=== PATIENT | male | born 1940 | race Caucasian/White ===

== ENCOUNTER → 2018-09-23 20:59 | Outpatient (CLI) | payer SELFPAY ==
[2018-09-23 15:18] VITALS: BMI 28.1
[2018-09-23 21:27] LABS: Thyroid Stim Hormone (TSH) 1.39 uIU/mL (0.358-3.74)
== END ==
PROVIDERS: Visit Provider Nurse Practitioner
DX: E03.9 Hypothyroidism, unspecified (principal)
CPT/HCPCS: 84443

== ENCOUNTER → 2018-09-24 08:53 | Outpatient (CLI) | payer MEDICARE, BC, SELFPAY ==
[2018-09-23 15:18] VITALS: BMI 28.1
== END ==
PROVIDERS: Family Provider Nurse Practitioner; PCP Nurse Practitioner; Referring Provider Nurse Practitioner; Visit Provider Nurse Practitioner
DX: E03.9 Hypothyroidism, unspecified (principal)

== ENCOUNTER → 2019-06-27 18:08 | Outpatient (CLI) | payer MEDICARE, BC, SELFPAY ==
[2019-06-27 11:30] VITALS: BMI 27.8
[2019-06-27 18:20] LABS: Absolute Lymphocyte Count 1.69 X10^3/uL (0.83-4.51); Absolute Neutrophil Count 6.3 X10^3/uL (2.0-7.7); Basophil# 0.05 X10^3/uL; Basophil% 0.5 % (0-1); Eosinophil# 0.26 X10^3/uL; Eosinophils% 2.8 % (0-5); Hematocrit 43.5 % (40-54); Hemoglobin 13.1 g/dL (13.0-16.5); Lymphocyte # 1.69 X10^3/ul (4.0); Lymphocyte % 18.2 % (19-41); Mean Corp Hgb Conc 30.1 g/dL (32-36); Mean Corpuscular Hgb 30.3 pg (27.0-32.0); Mean Corpuscular Volume 100.7 fL (80-94); Monocyte# 0.99 X10^3/uL; Monocyte% 10.7 % (0-10); NRBC Flagged by Analyzer 0 % (0-5); Neutrophil # 6.25 X10^3/uL (2.7-7.7); Neutrophil % 67.5 % (47-70); Platelet Count 297 K/mm3 (150-450); RBC Distribution Width CV 14.5 % (11.6-14.6); RBC Distribution Width SD 54.4 fl (35.1-43.9); Red Blood Count 4.32 M/mm3 (4.6-6.2); White Blood Count 9.3 K/mm3 (4.4-11.0)
[2019-06-27 18:37] LABS: ALB/GLOB Ratio 0.9 RATIO (0.9-2.4); AST(SGOT) 15 U/L (15-37); Alanine Aminotransfer ALT/SGPT 16 U/L (16-61); Albumin, Serum 3.6 g/dL (3.2-5.0); Alkaline Phosphatase 66 U/L (45-117); Anion Gap 2 (5-15); BUN 17 mg/dL (7-18); BUN/Creat Ratio 10.6 RATIO (10-20); Calcium,Total 9.1 mg/dL (8.5-10.1); Chloride 109 mmol/L (98-107); Cholesterol 201 mg/dL (200); Creatinine, Serum 1.61 mg/dL (0.70-1.30); EST Glomerular Filtration Rate 44 mL/min (>60); Est Glom Filt Rate - Afr Amer 53 mL/min (>60); Globulin 4.1 g/dL (2.2-4.2); Glucose 82 mg/dL (74-106); High Density Lipoprotein 51 mg/dL; Potassium 5.7 mmol/L (3.5-5.1); Protein, Total 7.7 g/dL (6.4-8.2); Sodium Level 141 mmol/L (136-145); Thyroid Stim Hormone (TSH) 1.18 uIU/mL (0.358-3.74); Triglycerides 155 mg/dL; Very Low Density Lipoprotein 31 mg/dL (5-40)
== END ==
PROVIDERS: Family Provider Nurse Practitioner; PCP Nurse Practitioner; Referring Provider Nurse Practitioner; Visit Provider Nurse Practitioner
DX: E03.9 Hypothyroidism, unspecified (principal); I10 Essential (primary) hypertension; E78.5 Hyperlipidemia, unspecified
CPT/HCPCS: 80053; 80061; 84443; 85025

== ENCOUNTER → 2020-06-28 21:02 | Outpatient (CLI) | payer MEDICARE, BC, SELFPAY ==
[2020-06-28 15:35] VITALS: BMI 27.8
[2020-06-28 21:14] LABS: Absolute Lymphocyte Count 1.77 X10^3/uL (0.83-4.51); Absolute Neutrophil Count 5.2 X10^3/uL (2.0-7.7); Basophil# 0.06 X10^3/uL; Basophil% 0.7 % (0-1); Eosinophil# 0.24 X10^3/uL; Hematocrit 35.1 % (40-54); Hemoglobin 10.4 g/dL (13.0-16.5); Lymphocyte # 1.77 X10^3/ul (4.0); Lymphocyte % 21.8 % (19-41); Mean Corp Hgb Conc 29.6 g/dL (32-36); Mean Corpuscular Hgb 27.4 pg (27.0-32.0); Mean Corpuscular Volume 92.4 fL (80-94); Mean Platelet Vol. 11.9 fl (6.2-12.0); Monocyte# 0.84 X10^3/uL; Monocyte% 10.4 % (0-10); NRBC Flagged by Analyzer 0 % (0-5); Neutrophil # 5.17 X10^3/uL (2.7-7.7); Neutrophil % 63.7 % (47-70); Platelet Count 358 K/mm3 (150-450); RBC Distribution Width CV 17.4 % (11.6-14.6); RBC Distribution Width SD 59.3 fl (35.1-43.9); White Blood Count 8.1 K/mm3 (4.4-11.0)
[2020-06-28 21:40] LABS: ALB/GLOB Ratio 0.9 RATIO (0.9-2.4); AST(SGOT) 14 U/L (15-37); Alanine Aminotransfer ALT/SGPT 14 U/L (16-61); Albumin, Serum 3.5 g/dL (3.2-5.0); Alkaline Phosphatase 59 U/L (45-117); Anion Gap 3 (5-15); BUN 19 mg/dL (7-18); BUN/Creat Ratio 10.9 RATIO (10-20); Calcium,Total 8.7 mg/dL (8.5-10.1); Chloride 107 mmol/L (98-107); Cholesterol 148 mg/dL (200); Creatinine, Serum 1.75 mg/dL (0.70-1.30); EST Glomerular Filtration Rate 40 mL/min (>60); Est Glom Filt Rate - Afr Amer 48 mL/min (>60); Globulin 3.7 g/dL (2.2-4.2); Glucose 162 mg/dL (74-106); High Density Lipoprotein 49 mg/dL; PSA,Total - Annual Screen 1.51 ng/mL (0.00-4.00); Potassium 4.9 mmol/L (3.5-5.1); Protein, Total 7.2 g/dL (6.4-8.2); Sodium Level 141 mmol/L (136-145); Thyroid Stim Hormone (TSH) 0.92 uIU/mL (0.358-3.74); Triglycerides 119 mg/dL; Very Low Density Lipoprotein 24 mg/dL (5-40)
== END ==
PROVIDERS: PCP Nurse Practitioner; Visit Provider Nurse Practitioner
DX: R35.0 Frequency of micturition (principal); E78.5 Hyperlipidemia, unspecified; I10 Essential (primary) hypertension; E03.9 Hypothyroidism, unspecified; Z12.5 Encounter for screening for malignant neoplasm of prostate
CPT/HCPCS: 80053; 80061; 84153; 84443; 85025; G0103

== ENCOUNTER → 2020-10-06 22:25 | Outpatient (CLI) | payer MEDICARE, BC, SELFPAY ==
[2020-07-27 18:04] VITALS: BMI 27.8
[2020-10-06 23:04] LABS: ALB/GLOB Ratio 0.9 RATIO (0.9-2.4); AST(SGOT) 20 U/L (15-37); Alanine Aminotransfer ALT/SGPT 21 U/L (16-61); Albumin, Serum 3.6 g/dL (3.2-5.0); Alkaline Phosphatase 69 U/L (45-117); Anion Gap 3 (5-15); BUN 23 mg/dL (7-18); BUN/Creat Ratio 11.5 RATIO (10-20); Calcium,Total 9.1 mg/dL (8.5-10.1); Chloride 108 mmol/L (98-107); EST Glomerular Filtration Rate 34 mL/min (>60); Est Glom Filt Rate - Afr Amer 41 mL/min (>60); Globulin 3.8 g/dL (2.2-4.2); Glucose 98 mg/dL (74-106); Potassium 6.1 mmol/L (3.5-5.1); Protein, Total 7.4 g/dL (6.4-8.2); Sodium Level 142 mmol/L (136-145)
== END ==
LOC: OLS.AHF 22:26 → LABSPEC 10-07 08:22
PROVIDERS: PCP Nurse Practitioner; Referring Provider Nurse Practitioner; Visit Provider Nurse Practitioner
DX: N28.9 Disorder of kidney and ureter, unspecified (principal)
CPT/HCPCS: 80053

== ENCOUNTER 2020-12-22 15:26 | Outpatient (RCR) | payer MEDICARE, SELFPAY ==
[2020-10-06 11:06] VITALS: BMI 28.4
[2020-12-22] MEDS: COVID-19 VACC, MRNA(PFIZER)/PF 30 MCG/0.3 ML SYRINGE IM (12:14)
[2021-01-12] MEDS: COVID-19 VACC, MRNA(PFIZER)/PF 30 MCG/0.3 ML SYRINGE IM (11:58)
== END 2020-12-22 23:59 ==
LOC: IMMUN 15:26
PROVIDERS: PCP Nurse Practitioner; Visit Provider Family Medicine
DX: Z23 Encounter for immunization (principal)
CPT/HCPCS: 0001A; 0002A

== ENCOUNTER → 2021-01-18 22:14 | Outpatient (CLI) | payer MEDICARE, BC, SELFPAY ==
[2021-01-18 19:29] VITALS: BMI 29.0
[2021-01-18 22:38] LABS: Absolute Lymphocyte Count 1.72 X10^3/uL (0.83-4.51); Absolute Neutrophil Count 7.6 X10^3/uL (2.0-7.7); Basophil# 0.06 X10^3/uL; Basophil% 0.6 % (0-1); Eosinophil# 0.27 X10^3/uL; Eosinophils% 2.6 % (0-5); Hematocrit 43.9 % (40-54); Hemoglobin 13.4 g/dL (13.0-16.5); Lymphocyte # 1.72 X10^3/ul (4.0); Lymphocyte % 16.4 % (19-41); Mean Corp Hgb Conc 30.5 g/dL (32-36); Mean Corpuscular Hgb 28.6 pg (27.0-32.0); Mean Corpuscular Volume 93.6 fL (80-94); Mean Platelet Vol. 12.3 fl (6.2-12.0); Monocyte# 0.79 X10^3/uL; Monocyte% 7.5 % (0-10); NRBC Flagged by Analyzer 0 % (0-5); Neutrophil # 7.62 X10^3/uL (2.7-7.7); Neutrophil % 72.6 % (47-70); Platelet Count 367 K/mm3 (150-450); RBC Distribution Width CV 14.8 % (11.6-14.6); RBC Distribution Width SD 51.2 fl (35.1-43.9); Red Blood Count 4.69 M/mm3 (4.6-6.2); White Blood Count 10.5 K/mm3 (4.4-11.0)
[2021-01-18 22:45] LABS: ALB/GLOB Ratio 0.8 RATIO (0.9-2.4); AST(SGOT) 18 U/L (15-37); Alanine Aminotransfer ALT/SGPT 21 U/L (16-61); Albumin, Serum 3.5 g/dL (3.2-5.0); Alkaline Phosphatase 93 U/L (45-117); Anion Gap 5 (5-15); BUN 15 mg/dL (7-18); BUN/Creat Ratio 9.7 RATIO (10-20); Chloride 100 mmol/L (98-107); Cholesterol 167 mg/dL (200); Creatinine, Serum 1.54 mg/dL (0.70-1.30); EST Glomerular Filtration Rate 46 mL/min (>60); Est Glom Filt Rate - Afr Amer 56 mL/min (>60); Globulin 4.4 g/dL (2.2-4.2); Glucose 277 mg/dL (74-106); High Density Lipoprotein 54 mg/dL; Potassium 4.7 mmol/L (3.5-5.1); Protein, Total 7.9 g/dL (6.4-8.2); Sodium Level 135 mmol/L (136-145); Triglycerides 192 mg/dL; Very Low Density Lipoprotein 38 mg/dL (5-40)
== END ==
PROVIDERS: PCP Nurse Practitioner; Visit Provider Nurse Practitioner
DX: E78.5 Hyperlipidemia, unspecified (principal); N18.30 Chronic kidney disease, stage 3 unspecified; I12.9 Hypertensive chronic kidney disease with stage 1 through stage 4 chronic kidney disease, or unspecified chronic kidney disease
CPT/HCPCS: 80053; 80061; 85025

== ENCOUNTER → 2021-04-27 22:48 | Outpatient (CLI) | payer MEDICARE, BC, SELFPAY ==
[2021-04-25 20:27] VITALS: BMI 28.4
[2021-04-27 23:13] LABS: ALB/GLOB Ratio 0.8 RATIO (0.9-2.4); AST(SGOT) 23 U/L (15-37); Alanine Aminotransfer ALT/SGPT 25 U/L (16-61); Albumin, Serum 3.5 g/dL (3.2-5.0); Alkaline Phosphatase 98 U/L (45-117); Anion Gap 4 (5-15); BUN 16 mg/dL (7-18); BUN/Creat Ratio 9.5 RATIO (10-20); Calcium,Total 9.4 mg/dL (8.5-10.1); Chloride 102 mmol/L (98-107); Creatinine, Serum 1.68 mg/dL (0.70-1.30); EST Glomerular Filtration Rate 42 mL/min (>60); Est Glom Filt Rate - Afr Amer 51 mL/min (>60); Globulin 4.5 g/dL (2.2-4.2); Glucose 191 mg/dL (74-106); Potassium 5.5 mmol/L (3.5-5.1); Sodium Level 137 mmol/L (136-145)
== END ==
PROVIDERS: PCP Nurse Practitioner; Visit Provider Nurse Practitioner
DX: N18.30 Chronic kidney disease, stage 3 unspecified (principal)
CPT/HCPCS: 80053

== ENCOUNTER 2021-11-09 22:25 | Outpatient (CLI) | payer MEDICARE, BC, SELFPAY ==
[2021-11-09 23:07] LABS: ALB/GLOB Ratio 0.8 RATIO (0.9-2.4); AST(SGOT) 15 U/L (15-37); Alanine Aminotransfer ALT/SGPT 21 U/L (16-61); Albumin, Serum 3.5 g/dL (3.2-5.0); Alkaline Phosphatase 118 U/L (45-117); Anion Gap 5 (5-15); BUN 13 mg/dL (7-18); BUN/Creat Ratio 7.7 RATIO (10-20); Calcium,Total 9.6 mg/dL (8.5-10.1); Chloride 104 mmol/L (98-107); Creatinine, Serum 1.68 mg/dL (0.70-1.30); EST Glomerular Filtration Rate 42 mL/min (>60); Est Glom Filt Rate - Afr Amer 50 mL/min (>60); Globulin 4.6 g/dL (2.2-4.2); Glucose 283 mg/dL (74-106); Potassium 5.8 mmol/L (3.5-5.1); Protein, Total 8.1 g/dL (6.4-8.2); Sodium Level 140 mmol/L (136-145)
== END 2021-11-09 23:59 | disposition short-term general hospital (02) ==
LOC: LABSPEC 22:26
PROVIDERS: PCP Nurse Practitioner; Visit Provider Nurse Practitioner
DX: N18.30 Chronic kidney disease, stage 3 unspecified (principal)
CPT/HCPCS: 80053

== ENCOUNTER → 2022-03-27 | Outpatient (CLI) | payer MEDICARE, BC, SELFPAY ==
[2022-03-27 21:26] LABS: Absolute Lymphocyte Count 2.28 X10^3/uL (0.83-4.51); Absolute Neutrophil Count 6.9 X10^3/uL (2.0-7.7); Basophil# 0.06 X10^3/uL; Basophil% 0.6 % (0-1); Eosinophil# 0.27 X10^3/uL; Eosinophils% 2.6 % (0-5); Hematocrit 45.7 % (40-54); Hemoglobin 14.2 g/dL (13.0-16.5); Lymphocyte # 2.28 X10^3/ul (0.83-4.51); Lymphocyte % 21.9 % (19-41); Mean Corp Hgb Conc 31.1 g/dL (32-36); Mean Corpuscular Volume 96.4 fL (80-94); Mean Platelet Vol. 12.3 fl (6.2-12.0); Monocyte# 0.91 X10^3/uL; Monocyte% 8.7 % (0-10); NRBC Flagged by Analyzer 0 % (0-5); Neutrophil # 6.85 X10^3/uL (2.7-7.7); Neutrophil % 65.6 % (47-70); Platelet Count 352 K/mm3 (150-450); RBC Distribution Width CV 14.2 % (11.6-14.6); RBC Distribution Width SD 51.2 fl (35.1-43.9); Red Blood Count 4.74 M/mm3 (4.6-6.2); White Blood Count 10.4 K/mm3 (4.4-11.0)
[2022-03-27 21:55] LABS: ALB/GLOB Ratio 0.8 RATIO (0.9-2.4); AST(SGOT) 22 U/L (15-37); Alanine Aminotransfer ALT/SGPT 26 U/L (16-61); Albumin, Serum 3.5 g/dL (3.2-5.0); Alkaline Phosphatase 115 U/L (45-117); Anion Gap 5 (5-15); BUN 19 mg/dL (7-18); BUN/Creat Ratio 13.3 RATIO (10-20); Calcium,Total 9.3 mg/dL (8.5-10.1); Chloride 105 mmol/L (98-107); Cholesterol 155 mg/dL (200); Creatinine, Serum 1.43 mg/dL (0.70-1.30); EST Glomerular Filtration Rate 50 mL/min (>60); Est Glom Filt Rate - Afr Amer 61 mL/min (>60); Globulin 4.5 g/dL (2.2-4.2); Glucose 115 mg/dL (74-106); High Density Lipoprotein 53 mg/dL; PSA,Total - Annual Screen 2.37 ng/mL (0.00-4.00); Potassium 5.7 mmol/L (3.5-5.1); Sodium Level 139 mmol/L (136-145); Thyroid Stim Hormone (TSH) 2.95 uIU/mL (0.358-3.74); Triglycerides 171 mg/dL; Very Low Density Lipoprotein 34 mg/dL (5-40)
== END | disposition home or self-care (01) ==
PROVIDERS: PCP Nurse Practitioner; Visit Provider Nurse Practitioner
DX: E03.9 Hypothyroidism, unspecified (principal); R35.0 Frequency of micturition; R73.9 Hyperglycemia, unspecified; Z12.5 Encounter for screening for malignant neoplasm of prostate
CPT/HCPCS: 80053; 80061; 83036; 84153; 84443; 85025; G0103

== ENCOUNTER → 2023-06-10 | Outpatient (CLI) | payer MEDICARE, BC, SELFPAY ==
[2023-06-10 22:31] LABS: Absolute Lymphocyte Count 2.17 X10^3/uL (0.83-4.51); Basophil# 0.07 X10^3/uL; Basophil% 0.7 % (0-1); Eosinophil# 0.32 X10^3/uL; Eosinophils% 3.4 % (0-5); Hematocrit 45.7 % (40-54); Hemoglobin 14.5 g/dL (13.0-16.5); Lymphocyte # 2.17 X10^3/ul (0.83-4.51); Lymphocyte % 22.7 % (19-41); Mean Corp Hgb Conc 31.7 g/dL (32-36); Mean Corpuscular Hgb 31.1 pg (27.0-32.0); Mean Corpuscular Volume 98.1 fL (80-94); Mean Platelet Vol. 12.4 fl (6.2-12.0); Monocyte# 0.92 X10^3/uL; Monocyte% 9.6 % (0-10); NRBC Flagged by Analyzer 0 % (0-5); Neutrophil # 6.01 X10^3/uL (2.7-7.7); Platelet Count 352 K/mm3 (150-450); RBC Distribution Width CV 14.2 % (11.6-14.6); RBC Distribution Width SD 51.1 fl (35.1-43.9); Red Blood Count 4.66 M/mm3 (4.6-6.2); White Blood Count 9.6 K/mm3 (4.4-11.0)
[2023-06-10 22:51] LABS: ALB/GLOB Ratio 0.7 RATIO (0.9-2.4); AST(SGOT) 25 U/L (15-37); Alanine Aminotransfer ALT/SGPT 33 U/L (16-61); Albumin, Serum 3.2 g/dL (3.2-5.0); Alkaline Phosphatase 107 U/L (45-117); Anion Gap 6 (5-15); BUN 20 mg/dL (7-18); BUN/Creat Ratio 13.4 RATIO (10-20); Calcium,Total 8.8 mg/dL (8.5-10.1); Chloride 105 mmol/L (98-107); Cholesterol 165 mg/dL (200); Creatinine, Serum 1.49 mg/dL (0.70-1.30); EST Glomerular Filtration Rate 48 mL/min (>60); Est Glom Filt Rate - Afr Amer 58 mL/min (>60); Globulin 4.6 g/dL (2.2-4.2); Glucose 126 mg/dL (74-106); High Density Lipoprotein 48 mg/dL; PSA,Total - Annual Screen 4.43 ng/mL (0.00-4.00); Potassium 4.7 mmol/L (3.5-5.1); Protein, Total 7.8 g/dL (6.4-8.2); Sodium Level 139 mmol/L (136-145); Thyroid Stim Hormone (TSH) 3.52 uIU/mL (0.358-3.74); Triglycerides 270 mg/dL; Very Low Density Lipoprotein 54 mg/dL (5-40)
== END | disposition home or self-care (01) ==
PROVIDERS: PCP Nurse Practitioner; Visit Provider Nurse Practitioner
DX: I12.9 Hypertensive chronic kidney disease with stage 1 through stage 4 chronic kidney disease, or unspecified chronic kidney disease (principal); N18.30 Chronic kidney disease, stage 3 unspecified; E78.5 Hyperlipidemia, unspecified; E03.9 Hypothyroidism, unspecified; R35.0 Frequency of micturition; N40.0 Benign prostatic hyperplasia without lower urinary tract symptoms
CPT/HCPCS: 80053; 80061; 84153; 84443; 85025; G0103

== ENCOUNTER → 2023-09-03 | Outpatient (CLI) | payer MEDICARE, BC, SELFPAY ==
[2023-09-03 21:56] LABS: ALB/GLOB Ratio 0.8 RATIO (0.9-2.4); AST(SGOT) 17 U/L (15-37); Alanine Aminotransfer ALT/SGPT 21 U/L (16-61); Albumin, Serum 3.3 g/dL (3.2-5.0); Alkaline Phosphatase 106 U/L (45-117); Anion Gap 4 (5-15); BUN 18 mg/dL (7-18); BUN/Creat Ratio 11.5 RATIO (10-20); Calcium,Total 9.2 mg/dL (8.5-10.1); Chloride 104 mmol/L (98-107); Creatinine, Serum 1.57 mg/dL (0.70-1.30); EST Glomerular Filtration Rate 45 mL/min (>60); Est Glom Filt Rate - Afr Amer 54 mL/min (>60); Globulin 4.1 g/dL (2.2-4.2); Glucose 195 mg/dL (74-106); PSA,Total- Diagnostic 3.04 ng/mL (0.0-4.0); Potassium 5.6 mmol/L (3.5-5.1); Protein, Total 7.4 g/dL (6.4-8.2); Sodium Level 140 mmol/L (136-145)
[2023-09-03 22:11] LABS: Hemoglobin A1c 6.8 % (3.8-5.6)
== END | disposition home or self-care (01) ==
PROVIDERS: PCP Nurse Practitioner; Visit Provider Nurse Practitioner
DX: R97.20 Elevated prostate specific antigen [PSA] (principal); N18.30 Chronic kidney disease, stage 3 unspecified; E78.5 Hyperlipidemia, unspecified; E03.9 Hypothyroidism, unspecified; I12.9 Hypertensive chronic kidney disease with stage 1 through stage 4 chronic kidney disease, or unspecified chronic kidney disease; R35.0 Frequency of micturition; R73.9 Hyperglycemia, unspecified
CPT/HCPCS: 80053; 83036; 84153

== ENCOUNTER → 2023-09-11 | Outpatient (CLI) | payer MEDICARE, BC, SELFPAY ==
[2023-09-11 22:48] LABS: ALB/GLOB Ratio 0.8 RATIO (0.9-2.4); AST(SGOT) 17 U/L (15-37); Alanine Aminotransfer ALT/SGPT 27 U/L (16-61); Albumin, Serum 3.3 g/dL (3.2-5.0); Alkaline Phosphatase 109 U/L (45-117); Anion Gap 5 (5-15); BUN 21 mg/dL (7-18); BUN/Creat Ratio 14.3 RATIO (10-20); Calcium,Total 9.2 mg/dL (8.5-10.1); Chloride 104 mmol/L (98-107); Creatinine, Serum 1.47 mg/dL (0.70-1.30); EST Glomerular Filtration Rate 48 mL/min (>60); Est Glom Filt Rate - Afr Amer 59 mL/min (>60); Globulin 4.4 g/dL (2.2-4.2); Glucose 196 mg/dL (74-106); Potassium 4.2 mmol/L (3.5-5.1); Protein, Total 7.7 g/dL (6.4-8.2); Sodium Level 136 mmol/L (136-145); Thyroid Stim Hormone (TSH) 1.87 uIU/mL (0.358-3.74)
== END | disposition home or self-care (01) ==
PROVIDERS: PCP Nurse Practitioner; Visit Provider Nurse Practitioner
DX: N18.4 Chronic kidney disease, stage 4 (severe) (principal); E03.9 Hypothyroidism, unspecified
CPT/HCPCS: 80053; 84443

== ENCOUNTER → 2024-02-12 | Outpatient (CLI) | payer MEDICARE, BC, SELFPAY ==
[2024-02-12 20:18] LABS: Absolute Neutrophil Count 7.3 X10^3/uL (2.0-7.7); Basophil% 0.9 % (0-1); Eosinophil# 0.29 X10^3/uL; Eosinophils% 2.7 % (0-5); Hematocrit 43.7 % (40-54); Hemoglobin 13.8 g/dL (13.0-16.5); Lymphocyte % 19.4 % (19-41); Mean Corp Hgb Conc 31.6 g/dL (32-36); Mean Corpuscular Hgb 30.3 pg (27.0-32.0); Mean Corpuscular Volume 95.8 fL (80-94); Mean Platelet Vol. 12.3 fl (6.2-12.0); Monocyte# 0.96 X10^3/uL; Monocyte% 8.8 % (0-10); NRBC Flagged by Analyzer 0 % (0-5); Neutrophil # 7.34 X10^3/uL (2.7-7.7); Neutrophil % 67.6 % (47-70); Platelet Count 357 K/mm3 (150-450); RBC Distribution Width CV 14.3 % (11.6-14.6); RBC Distribution Width SD 50.3 fl (35.1-43.9); Red Blood Count 4.56 M/mm3 (4.6-6.2); White Blood Count 10.9 K/mm3 (4.4-11.0)
[2024-02-12 20:31] LABS: ALB/GLOB Ratio 0.7 RATIO (0.9-2.4); AST(SGOT) 29 U/L (15-37); Alanine Aminotransfer ALT/SGPT 27 U/L (16-61); Albumin, Serum 3.1 g/dL (3.2-5.0); Alkaline Phosphatase 112 U/L (45-117); Anion Gap 4 (5-15); BUN 18 mg/dL (7-18); BUN/Creat Ratio 11.3 RATIO (10-20); Calcium,Total 9.2 mg/dL (8.5-10.1); Chloride 106 mmol/L (98-107); Cholesterol 158 mg/dL (200); Creatinine, Serum 1.59 mg/dL (0.70-1.30); EST Glomerular Filtration Rate 44 mL/min (>60); Est Glom Filt Rate - Afr Amer 53 mL/min (>60); Globulin 4.7 g/dL (2.2-4.2); Glucose 153 mg/dL (74-106); High Density Lipoprotein 58 mg/dL; PSA,Total- Diagnostic 4.52 ng/mL (0.0-4.0); Potassium 5.9 mmol/L (3.5-5.1); Protein, Total 7.8 g/dL (6.4-8.2); Sodium Level 137 mmol/L (136-145); Triglycerides 140 mg/dL; Very Low Density Lipoprotein 28 mg/dL (5-40)
[2024-02-12 20:41] LABS: Hemoglobin A1c 7.2 % (3.8-5.6)
== END | disposition home or self-care (01) ==
PROVIDERS: PCP Nurse Practitioner; Visit Provider Nurse Practitioner
DX: I12.9 Hypertensive chronic kidney disease with stage 1 through stage 4 chronic kidney disease, or unspecified chronic kidney disease (principal); N18.4 Chronic kidney disease, stage 4 (severe); R73.9 Hyperglycemia, unspecified; R97.20 Elevated prostate specific antigen [PSA]; E78.5 Hyperlipidemia, unspecified; E03.9 Hypothyroidism, unspecified; R35.0 Frequency of micturition
CPT/HCPCS: 80053; 80061; 83036; 84153; 85025

== ENCOUNTER → 2024-06-10 | Outpatient (CLI) | payer MEDICARE, BC, SELFPAY ==
[2024-06-10 22:59] LABS: ALB/GLOB Ratio 0.7 RATIO (0.9-2.4); AST(SGOT) 22 U/L (15-37); Alanine Aminotransfer ALT/SGPT 27 U/L (16-61); Albumin, Serum 3.2 g/dL (3.2-5.0); Alkaline Phosphatase 104 U/L (45-117); Anion Gap 7 (5-15); BUN 17 mg/dL (7-18); BUN/Creat Ratio 11.3 RATIO (10-20); Calcium,Total 9.1 mg/dL (8.5-10.1); Chloride 103 mmol/L (98-107); EST Glomerular Filtration Rate 47 mL/min (>60); Est Glom Filt Rate - Afr Amer 57 mL/min (>60); Globulin 4.3 g/dL (2.2-4.2); Glucose 246 mg/dL (74-106); PSA,Total- Diagnostic 4.16 ng/mL (0.0-4.0); Potassium 5.3 mmol/L (3.5-5.1); Protein, Total 7.5 g/dL (6.4-8.2); Sodium Level 138 mmol/L (136-145)
[2024-06-10 23:15] LABS: Hemoglobin A1c 6.6 % (3.8-5.6)
== END | disposition home or self-care (01) ==
PROVIDERS: PCP Nurse Practitioner; Referring Provider Nurse Practitioner; Visit Provider Nurse Practitioner
DX: E03.9 Hypothyroidism, unspecified (principal); N18.4 Chronic kidney disease, stage 4 (severe); E11.22 Type 2 diabetes mellitus with diabetic chronic kidney disease; R73.9 Hyperglycemia, unspecified; R97.20 Elevated prostate specific antigen [PSA]
CPT/HCPCS: 80053; 83036; 84153; 84443

== ENCOUNTER → 2024-08-11 | Outpatient (CLI) | payer MEDICARE, BC, SELFPAY ==
--- OUTSIDE RECORDS SUMMARY | 2024-08-11 06:53 | XMS RPT_ITS | CCD ---
Author Organization [employer] [facility] Results Test Name Value Interpretation Reference Range Facil ity US SCREENING AAAon 9 US SCREENING AAA * * *Final Report* * * DATE OF EXAM: Jul 03 2019 8:33AM LDU 1028 - US SCREENING AAA / PROCEDURE REASON: atherosclerosis * * * * Physician Interpretation * * * * EXAM TITLE:US SCREENING AAA DATE: 07/03/2019 COMPARISON: None. CLINICAL INDICATION/HISTORY: Atherosclerotic changes, hypertension TECHNIQUE: Retroperitoneal ultrasound with attention to the aorta with color flow Doppler technique FINDINGS: Proximal aorta measures 1.8 cm, mid aorta 2.1 cm, distal aorta 2.0 cm. These transverse measurements are within normal limits. Left common iliac artery 0.9 cm right common iliac artery 1.0 cm. No hydronephrosis. IMPRESSION: No evidence of abdominal aortic aneurysm Box Nailer: PSCB Transcribe Date/Time: Jul 03 2019 8:45A Dictated by : WAN WHEELER MD This examination was interpreted and the report reviewed and electronically signed by: WAN WHEELER MD on Jul 03 2019 8:46AM EST Normal [facility] Summary Purpose Family History No Family History Records Found Advance Directives No Advanced Directives Records Found Additional Source Comments (unrecognized sect ion and content) No Status Records Found INFORMATION SOURCE (unrecogn ized section and content) DATE CREATED AUTHOR 07/03/2019 [facility] FOR RECORDS PERTAINING TO PATIENTS WHO ARE OR HAVE BEEN ENROLLED IN A CHEMICAL DEPENDENCY/SUBSTANCEABUSE PROGRAM, SOME INFORMATION MAY BE OMITTED. This clinical summary was aggregated from multiple sources. Caution should be exercised in using it in the provision of clinical care. This summary normalizes information from multiple sources, and as a consequence, information in this document may materially change the coding, format and clinical context of patient data. In addition, data may be omitted in some cases. CLINICAL DECISIONS SHOULD BE BASED ON THE PRIMARY CLINICAL RECORDS. [employer] [facility]. provides no warranty or guarantee of the accuracy or completeness of information in this document.
--- NOTE | 2024-08-11 06:55 | ECHOCS_ITS ---
Reason For Study: DYSPNEA Procedure This was a 2D Doppler, Color Flow transthoracic echocardiogram. The study was technically difficult. Contrast injection was performed. Exam performed in department. Left Ventricle Normal size and thickness. The left ventricular ejection fraction is 65 %. Normal diastology for age. Right Ventricle Normal right ventricle. Atria The left and right atria are normal. Mitral Valve Trivial mitral valve insufficiency. Tricuspid Valve Mild tricuspid valve insufficiency. Right ventricular systolic pressure estimated to be 45 mmHg. Aortic Valve Trisinus/trileaflet aortic valve. Aortic sclerosis, no stenosis. Pulmonic Valve The pulmonic valve is not well visualized. Trivial pulmonic valve insufficiency. Great Vessels Normal sized aortic root. Atherosclerotic aortic root. Pericardium/Pleural No pericardial effusion. Medication 22 gauge I.V. with prn adaptor inserted into left arm. Diluted definity 2ml given slow IV push to enhance endocardial definition. MMode/2D Measurements & Calculations LVIDd: 4.3 cm IVSd: 0.98 cm LVOT diam: 2.0 cm LVIDs: 2.8 cm LVPWd: 0.97 cm RVDd: 4.7 cm FS: 35.1 % LVOT area: 3.0 cm2 asc Aorta Diam: 3.4 cm LAV(MOD-bp): 42.7 ml LVAd ap4: 31.5 cm2 LAV(MOD-bp) Indexed: 20.9 ml/m2 LVLd ap4: 8.6 cm LAV(MOD-sp2): 45.2 ml EDV(MOD-sp4): 97.8 ml LAV(MOD-sp4): 33.7 ml EDV(sp4-el): 97.8 ml LVAs ap4: 14.8 cm2 LVLs ap4: 6.3 cm ESV(MOD-sp4): 29.4 ml ESV(sp4-el): 29.5 ml EF(MOD-sp4): 69.9 % EF(sp4-el): 69.8 % LVAd ap2: 26.3 cm2 SV(MOD-sp4): 68.4 ml SV(MOD-sp2): 46.8 ml LVLd ap2: 8.2 cm EDV(MOD-sp2): 70.0 ml EDV(sp2-el): 71.6 ml LVAs ap2: 13.1 cm2 LVLs ap2: 6.2 cm ESV(MOD-sp2): 23.2 ml ESV(sp2-el): 23.7 ml EF(MOD-sp2): 66.9 % SV(sp4-el): 68.3 ml Ao sinus diam: 3.[address] Junction: 2.3 cm LA dimension(2D): 3.2 cm LA A4 area: 13.7 cm2 RA A4 area: 11.6 cm2 TAPSE: 2.6 cm Time Measurements MV dec time: 0.19 sec Doppler Measurements & Calculations MV E max dion: 77.9 cm/sec Lat Peak E' Dion: 11.2 cm/sec Med Peak E' Dion: 8.7 cm/sec MV A max dion: 83.9 cm/sec E/E' lat: 7.0 E/E' med: 8.9 MV E/A: 0.93 MV dec slope: 411.9 cm/sec2 Ao V2 max: 207.3 cm/sec LV V1 max: 133.0 cm/sec Ao max P.2 mmHg LV V1 max P.1 mmHg Ao V2 mean: 140.1 cm/sec LV V1 mean P.7 mmHg Ao mean P.8 mmHg LV V1 mean: 92.3 cm/sec Ao V2 VTI: 41.4 cm LV V1 VTI: 27.7 cm AV (velocity ratio): 0.67 BISHNU(I,D): 2.0 cm2 BISHNU(V,D): 1.9 cm2 SV(LVOT): 83.5 ml PA V2 max: 122.1 cm/sec PI end-d dion: 90.0 cm/sec PA max PG (full): 4.0 mmHg TR max dion: 302.2 cm/sec TR max P.5 mmHg ECHO/Echo Complete W/ Contrast Interpretation Summary The left ventricular ejection fraction is 65 %. Mild tricuspid valve insufficiency. Right ventricular systolic pressure estimated to be 45 mmHg. Aortic sclerosis, no stenosis. Atherosclerotic aortic root Ordering Physician: Giacomo Brambila Referring Physician: Giacomo Brambila MD Performed By: Vy Hudson SEEMA
--- NOTE | 2024-08-11 09:55 | STRESSREP ---
Stress Test Report Date: 08/11/2024 Procedure: Exercise tolerance test/imaging study Indications: Dyspnea Consent: Per the patient Procedure: The patient exercised on a Yonas protocol for 5 minutes and 29 seconds achieving a peak heart rate of 109 bpm (80% predicted maximal heart rate) with a peak blood pressure 160/80 mmHg and a peak MET capacity of 7.0 METs. The baseline ECG demonstrated sinus rhythm with nonspecific ST changes. The peak exercise ECG demonstrated no diagnostic ischemic changes. Occasional PVCs noted pretest, frequent PVCs during exercise. The functional capacity was considered average for age. There was no complaints of chest pain during exercise or in recovery. However the patient did feel short of breath.. The examination was discontinued secondary to dyspnea and leg weakness. The patient was injected with 10.2 mCi of technetium 99m Cardiolite and subsequently rest SPECT Cardiolite nuclear imaging was obtained in the horizontal long, vertical long, and short axis views. Post-exercise, the patient was injected with 30.9 mCi of technetium 99m Cardiolite and subsequently stress SPECT Cardiolite nuclear imaging was obtained in the horizontal long, vertical long, and short axis views. A gated Cardiolite study at peak stress was obtained. Rest and stress SPECT Cardiolite nuclear imaging status post realignment, normalization, and attenuation correction, demonstrates the appearance of relative uniform tracer uptake and myocardial perfusion appearing within normal limits. There is end systolic thickening and brightening. The gated Cardiolite study demonstrates myocardial thickening and inward wall motion. The reported LVEF is 84%. Impression: 1. Suboptimal stress test with 80% of the maximal predicted heart rate achieved. Blunted blood pressure response to exercise. 2. Peak exercise ECG with no diagnostic ischemic changes 3. PVCs noted pretest. Frequent PVCs with exercise 4. Rest and stress SPECT Cardiolite nuclear imaging demonstrate relative uniform tracer uptake and myocardial perfusion appearing within normal limits. 5. The gated Cardiolite study reports an LVEF of 84%. 6. With blunted blood pressure response to exercise, recommend another modality such as coronary CT angio for further evaluation. This note was generated with [employer] software. It may contain incorrect words, spelling, and punctuation that were not noted in checking the note before signing.
== END | disposition home or self-care (01) ==
LOC: CVS 06:50
PROVIDERS: PCP Nurse Practitioner; Referring Provider Internal Medicine Cardiovascular Disease; Visit Provider Internal Medicine Cardiovascular Disease
DX: I70.90 Unspecified atherosclerosis (principal); E78.2 Mixed hyperlipidemia; I49.3 Ventricular premature depolarization; R06.02 Shortness of breath; R00.1 Bradycardia, unspecified
CPT/HCPCS: 78452; 93017; 93306; A9500; Q9957; A4216; C8929

== ENCOUNTER → 2024-09-15 | Outpatient (CLI) | payer MEDICARE, BC, SELFPAY ==
--- NOTE | 2024-09-15 12:24 | CT_ITS ---
EXAM: CT <TEMPLATE> WITH INTRAVENOUS CONTRAST CLINICAL INDICATION: Abnormal stress test OVER READ ONLY TECHNIQUE: Helically acquired images were obtained of the heart evaluation cardiac structure morphology with intravenous contrast. This CT exam was performed using one or more of the following dose reduction techniques: automated exposure control, adjustment of the mA and/or kV according to patient size, and/or use of iterative reconstruction technique. CONTRAST: IV 90mL [id number] COMPARISON: No relevant prior studies available. FINDINGS: Heart is mildly enlarged. Diffuse coronary artery calcification. Moderately large hiatal hernia. The visualized pulmonary arteries demonstrate no evidence of embolism. There is scarring or atelectasis within the lingula and right middle lobe. No mediastinal or hilar lymphadenopathy Visualized osseous structures are unremarkable. Please refer to the cardiology report portion of this exam for information pertaining to the coronary arteries. CT/Limited Chest CT Cardiac Only IMPRESSION: Cardiomegaly. Moderate size hiatal hernia. No acute pulmonary abnormality. Electronically Signed: Freddy Murphy MD at 10:26 EST ,
[2024-09-15 12:33] VITALS: BP 189/72; PULSE 50; RESP 20; O2SAT 96; BMI 27.2
[2024-09-15 12:52] VITALS: PULSE 47
[2024-09-15] MEDS: Nitroglycerin SL (ED/IMG/CATH) 0.4 MG TABLET SL (12:52)
[2024-09-15 13:00] LABS: CREATININE FINGERSTICK < 1.0 mg/dL (0.70-1.30); EGFR FINGERSTICK > 60.0000 mL/min (>60)
[2024-09-15 13:04] VITALS: BP 134/59; PULSE 50; RESP 18; O2SAT 94
--- NOTE | 2024-09-25 09:54 | CCTA.WCONT ---
CCTA w/Cont Coronary Arteries Date of Study:: 09/15/24 AbNormal previous stress test Coronary Calcium Scoring: High-resolution Computed Tomographic imaging of the chest was performed on [09/15/2024], with particular attention paid to the coronary arteries. Intravenous contrast agent was administered per protocol and images reconstructed and displayed. LEFT MAIN CORONARY ARTERY: Arises from the left coronary cusp. There was mild calcification noted by peak into left anterior descending artery left circumflex artery [] LEFT ANTERIOR DESCENDING CORONARY ARTERY: This is a medium size vessel with significant proximal and mid calcification and narrowing noted of the first diagonal vessel. There is at least moderate narrowing of the mid left anterior descending artery. The vessel continues towards the apex of the ventricle. [] LEFT CIRCUMFLEX CORONARY ARTERY: This was a large vessel with moderate calcification with moderate stenosis noted in the midsegment. [] RIGHT CORONARY ARTERY: Dominant right coronary artery with proximal and mid segment calcification which is moderate the may be a distal posterior descending artery occlusion noted. There is some motion artifact present. CORONARY CALCIUM SCORE: Not performed Moderate to moderately severe atherosclerotic calcification noted involving the left anterior descending artery, left circumflex artery, and right coronary artery. Obstructive disease cannot be excluded in these 3 vessels. However the extent of the calcification precludes detailed assessment of the segments. []
== END | disposition home or self-care (01) ==
LOC: CT 12:21
PROVIDERS: PCP Nurse Practitioner; Referring Provider Physician Assistant Medical; Visit Provider Physician Assistant Medical
DX: R94.39 Abnormal result of other cardiovascular function study (principal)
CPT/HCPCS: 75574; 76380; Q9967

== ENCOUNTER → 2024-09-29 | Outpatient (CLI) | payer MEDICARE, BC, SELFPAY ==
[2024-09-29 22:03] LABS: Anion Gap 5 (5-15); BUN 19 mg/dL (7-18); BUN/Creat Ratio 12.9 RATIO (10-20); Calcium,Total 10.1 mg/dL (8.5-10.1); Chloride 107 mmol/L (98-107); Cholesterol 175 mg/dL (200); Creatinine, Serum 1.47 mg/dL (0.70-1.30); EST Glomerular Filtration Rate 48 mL/min (>60); Est Glom Filt Rate - Afr Amer 58 mL/min (>60); Glucose 112 mg/dL (74-106); High Density Lipoprotein 57 mg/dL; Potassium 5.4 mmol/L (3.5-5.1); Sodium Level 143 mmol/L (136-145); Triglycerides 113 mg/dL; Very Low Density Lipoprotein 23 mg/dL (5-40)
== END | disposition home or self-care (01) ==
PROVIDERS: Internal Medicine Cardiovascular Disease; PCP Nurse Practitioner; Referring Provider Nurse Practitioner; Visit Provider Nurse Practitioner
DX: E78.5 Hyperlipidemia, unspecified (principal); I12.9 Hypertensive chronic kidney disease with stage 1 through stage 4 chronic kidney disease, or unspecified chronic kidney disease; N18.9 Chronic kidney disease, unspecified; I49.3 Ventricular premature depolarization; R06.02 Shortness of breath
CPT/HCPCS: 80048; 80061

== ENCOUNTER → 2025-02-09 | Outpatient (CLI) | payer MEDICARE, BC, SELFPAY ==
[2025-02-09 22:29] LABS: Absolute Lymphocyte Count 2.01 X10^3/uL (0.83-4.51); Absolute Neutrophil Count 6.4 X10^3/uL (2.0-7.7); Basophil# 0.06 X10^3/uL; Basophil% 0.6 % (0-1); Eosinophil# 0.23 X10^3/uL; Eosinophils% 2.4 % (0-5); Hematocrit 41.2 % (40-54); Hemoglobin 13.5 g/dL (13.0-16.5); Lymphocyte # 2.01 X10^3/ul (0.83-4.51); Lymphocyte % 21.1 % (19-41); Mean Corp Hgb Conc 32.8 g/dL (32-36); Mean Corpuscular Volume 94.7 fL (80-94); Monocyte# 0.78 X10^3/uL; Monocyte% 8.2 % (0-10); NRBC Flagged by Analyzer 0 % (0-5); Neutrophil # 6.37 X10^3/uL (2.7-7.7); Neutrophil % 67.1 % (47-70); Platelet Count 409 K/mm3 (150-450); RBC Distribution Width CV 13.8 % (11.6-14.6); Red Blood Count 4.35 M/mm3 (4.6-6.2); White Blood Count 9.5 K/mm3 (4.4-11.0)
[2025-02-09 23:11] LABS: AST(SGOT) 28 U/L (<=37); Alanine Aminotransfer ALT/SGPT 20 U/L (<=46); Albumin, Serum 3.6 g/dL (3.4-4.8); Alkaline Phosphatase 103 U/L (40-129); Anion Gap 13 (5-15); BUN 19 mg/dL (4-19); Calcium,Total 9.6 mg/dL (7.6-11.0); Carbon Dioxide 27.5 mmol/L (21.0-32.0); Chloride 99 mmol/L (98-108); Cholesterol 173 mg/dL (<=200); Creatinine, Serum 1.49 mg/dL (0.70-1.20); EST Glomerular Filtration Rate 45 (>60); Globulin 3.6 g/dL (2.2-4.2); Glucose 179 mg/dL (70-99); High Density Lipoprotein 52 mg/dL; Low Density Lipoprotein Calc. 97 mg/dL; PSA,Total - Annual Screen 4.29 ng/mL (0.02-4.00); Potassium 5.2 mmol/L (3.3-5.1); Protein, Total 7.3 g/dL (5.9-8.4); Sodium Level 140 mmol/L (133-145); Triglycerides 118 mg/dL; Very Low Density Lipoprotein 24 mg/dL (5-40)
== END | disposition home or self-care (01) ==
PROVIDERS: PCP Nurse Practitioner; Referring Provider Nurse Practitioner; Visit Provider Nurse Practitioner
DX: Z12.5 Encounter for screening for malignant neoplasm of prostate (principal); E11.51 Type 2 diabetes mellitus with diabetic peripheral angiopathy without gangrene; I25.10 Atherosclerotic heart disease of native coronary artery without angina pectoris; R97.20 Elevated prostate specific antigen [PSA]; E78.2 Mixed hyperlipidemia; I10 Essential (primary) hypertension; E03.9 Hypothyroidism, unspecified
CPT/HCPCS: 80053; 80061; 84153; 84443; 85025; G0103

== ENCOUNTER → 2025-06-11 | Outpatient (CLI) | payer MEDICARE, BC, SELFPAY ==
--- OUTSIDE RECORDS SUMMARY | 2025-06-11 22:41 | XMS RPT_ITS | CCD ---
Author Organization [facility] Care Team Providers Care Template Maker Name Role Phone Ewing MELTER CLERK-C, Kim Primary Care Provider [phone] Ewing MELTER CLERK-C, Kim Referring Provider Dr. Giacomo Brambila MD Attending Provider Ewing MELTER CLERK-C, Kim Attending Provider Ewing MELTER CLERK, Kim Referring Unavailable Kosta, Giacomo Attending Unavailable Ewing MELTER CLERK, Kim Primary Care Unavailable Ewing MELTER CLERK, Kim Attending Unavailable Ewing MELTER CLERK, Kim Primary Care Unavailable Ewing MELTER CLERK, Kim Referring Unavailable Ewing MELTER CLERK, Kim Referring Unavailable Kosta, Giacomo Attending Unavailable Ewing MELTER CLERK, Kim Primary Care Unavailable Ewing MELTER CLERK, Kim Attending Unavailable Ewing MELTER CLERK, Kim Primary Care Unavailable Ewing MELTER CLERK, Kim Referring Unavailable Ewing MELTER CLERK, Kim Primary Care Unavailable Joann Dsouza Referring Unavail able Joann Dsouza Attending Unavail able Kosta, Giacomo Attending Unavailable Kosta, Giacomo Referring Unavailable Ewing MELTER CLERK, Kim Primary Care Unavailable Ewing MELTER CLERK, Kim Referring Unavailable Ewing MELTER CLERK, Kim Attending Unavailable Ewing MELTER CLERK, Kim Primary Care Unavailable Kosta, Giacomo Attending Unavailable Ewing MELTER CLERK, Kim Referring Unavailable Ewing MELTER CLERK, Kim Primary Care Unavailable Tana, Allison Park Attending Unavailable Joann Dsouza Referring Unavail able Ewing MELTER CLERK, Ikm Primary Care Unavailable Tana, Allison Park Attending Unavailable Ewing MELTER CLERK, Kim Primary Care Unavailable Joann Dsouza Referring Unavail able Joann Dsouza Consulting Unavail able Kosta, Giacomo Attending Unavailable Kosta, Giacomo Consulting Unavailable Kosta, Giacomo Referring Unavailable Ewing MELTER CLERK, Kim Primary Care Unavailable Kosta, Giacomo Attending Unavailable Ewing MELTER CLERK, Kim Referring Unavailable Kim Ewing NP Primary Care Unavailable Allergies Allergy Classification Reported Allergen(s) Allergy Type Date of Onset Reaction(s) Facility (6 sources) Lisinopril Drug Allergy 10-07-2020 renal [facility] (6 sources) Losartan Drug Allergy 10-07-2020 renal [facility] (1 source) Lisinopril Drug Allergy 03-22-2025 [facility] (1 source) Losartan Drug Allergy 03-22-2025 [facility] Medications Current Medications Medication Drug Class(es) Dates Sig (Normalized) Sig (Original) aspirin 81 mg delayed release oral tablet (6 sources) Platelet Aggregation Inhibitor, Nonsteroidal Anti-inflammatory Drug Start: 09-23-2018 Aspirin (Adult Low Dose Aspirin) 81 mg tablet,delayed release (DR/EC) Active 81 mg PO DAILY September 23, 2018 1:00am atorvastatin 20 mg oral tablet (20 sources) HMG-CoA Reductase Inhibitor Start: 04-26-2021 End: 02-09-2025 take 1 tablet by mouth once daily Atorvastatin (Lipitor) 20 mg tablet Active 20 mg PO DAILY February 09, 2025 3:32pm cetirizine hydrochloride 10 mg oral capsule (7 sources) Histamine-1 Receptor Antagonist Start: 06-29-2024 take 1 capsule by mouth once daily Cetirizine (Zyrtec) 10 mg capsule Active 10 mg PO DAILY June 29, 2024 2:11pm Start: 09-23-2018 End: 06-29-2024 Cetirizine (Zyrtec) 10 mg ca psule Discontinued PO DAILY September 23, 2018 1:00am June 29, 2024 2:11pm ferrous sulfate 325 mg oral tablet (6 sources) Start: 09-23-2018 take 1 tablet by mouth once daily Ferrous Sulfate (Feosol) 325 mg (65 mg iron) tablet Active 325 mg PO DAILY September 23, 2018 1:00am hydroCHLOROthiazide 25 mg oral tablet (1 source) Thiazide Diuretic Start: 09-23-2024 take 1 tablet by mouth once daily Hydrochlorothiazide 25 mg tablet Active 25 mg PO daily September 23, 2024 1:00am 24 hr isosorbide mononitrate 60 mg extended release oral tablet (1 source) Nitrate Vasodilator Start: 01-07-2025 take 1 tablet by mouth once daily, then take 1 tablet by mouth every twenty-fou r hours Isosorbide Mononitrate 60 mg tablet extended release 24 hr Active 60 mg PO daily January 07, 2025 12:00am levothyroxine sodium 0.112 mg oral tablet (20 sources) l-Thyroxine Start: 06-11-2023 End: 06-30-2024 take 1 tablet by mouth once daily Levothyroxine 112 mcg tablet Active 112 ug PO DAILY June 30, 2024 7:12pm Start: 09-23-2018 End: 06-11-2023 take 1 tablet by mouth once daily Levothyroxine 100 mcg tablet Discontinued 100 ug PO DAILY August 03, 2021 6:22pm March 28, 2022 2:49pm metFORMIN hydrochloride 500 mg oral tablet (20 sources) Biguanide Start: 02-25-2025 take 1 tablet by mouth twice daily Metformin 500 mg tablet Active 500 mg PO TWICE A DAY February 25, 2025 7:28pm Start: 11-10-2021 End: 02-25-2025 take 1 tablet by mouth once daily Metformin 500 mg tablet Discontinued 500 mg PO DAILY February 09, 2025 3:33pm February 25, 2025 7:28pm Completed/Discontinued Medications Medication Drug Class(es) Dates Sig (Normalized) Sig (Original) carvedilol 3.125 mg oral tablet (20 sources) alpha-Adrenergic Karina, beta-Adrenergic Karina Start: 09-23-2018 End: 02-09-2025 take 1 tablet by mouth twice daily Carvedilol 3.125 mg tablet Discontinued 3.125 mg PO TWICE A DAY August 03, 2021 6:22pm March 27, 2022 5:19pm ciprofloxacin 500 mg oral tablet (5 sources) Quinolone Antimicrobial Start: 06-11-2023 End: 07-02-2023 take 1 tablet by mouth twice daily Ciprofloxacin Hcl 500 mg tablet Discontinued 500 mg PO TWICE A DAY June 11, 2023 12:00am July 01, 2023 12:00am July 02, 2023 12:03am 24 hr dilTIAZem hydrochloride 240 mg extended release oral capsule (20 sources) Calcium Channel Karina Start: 04-25-2021 End: 02-09-2025 take 1 capsule by mouth once daily Diltiazem Hcl 240 mg capsule,extended release 24 hr Discontinued 240 mg PO DAILY May 05, 2021 4:30pm March 27, 2022 5:19pm Start: 10-07-2020 End: 04-25-2021 take 1 capsule by mouth once daily Diltiazem Hcl 180 mg capsule,extended release 24 hr Discontinued 180 mg PO DAILY October 07, 2020 1:00am April 25, 2021 8:04pm ergocalciferol 0.0625 mg oral capsule (6 sources) Provitamin D2 Compound Start: 09-23-2018 End: 06-28-2020 Ergocalciferol (Vitamin D2) 2,500 unit capsule Discontinued 2500 U PO DAILY September 23, 2018 1:00am June 28, 2020 3:36pm lisinopril 20 mg oral tablet (20 sources) Angiotensin Converting Enzyme Inhibitor Start: 09-23-2018 End: 06-30-2020 take 1 tablet by mouth once daily Lisinopril 20 mg tablet Discontinued 20 mg PO DAILY June 28, 2020 3:37pm June 30, 2020 1:25pm losartan potassium 50 mg oral tablet (6 sources) Angiotensin 2 Receptor Karina Start: 06-30-2020 End: 10-07-2020 take 1 tablet by mouth once daily Losartan 50 mg tablet Discontinued 50 mg PO DAILY June 30, 2020 12:00am October 07, 2020 12:09pm simvastatin 20 mg oral tablet (20 sources) HMG-CoA Reductase Inhibitor Start: 09-23-2018 End: 04-26-2021 take 1 tablet by mouth once daily in the evening Simvastatin 20 mg tablet Discontinued 20 mg PO EVERY EVENING June 28, 2020 3:37pm April 26, 2021 1:53pm Problems Active Problems Problem Classification Problem Date Documented Date Episodic/Chronic Cardiac dysrhythmias (5 sources) Multiple premature ventricular complexes; Translations: [Ventricular premature depolarization] Onset: 09-04-2024 07-16-2024 Chronic Chronic kidney disease (14 sources) Chronic kidney disease stage 3; Translations: [Chronic renal insufficiency, stage III (moderate)] Onset: 09-23-2024 04-25-2021 Chronic Chronic kidney disease (1 source) Chronic kidney disease; Translations: [Chronic kidney disease, stage 3b] Onset: 03-22-2025 Coronary atherosclerosis and other heart disease (4 sources) Coronary arteriosclerosis; Translations: [Atherosclerotic heart disease of [place] coronary artery without angina pectoris] Onset: 03-22-2025 01-07-2025 Chronic Diabetes mellitus with complications (1 source) Type 2 diabetes mellitus with diabetic peripheral angiopathy without gangrene; Translations: [Type 2 diabetes mellitus with diabetic peripheral angiopathy without gangrene] Onset: 03-22-2025 Chronic Diabetes mellitus without complication (4 sources) Diabetes mellitus; Translations: [Type 2 diabetes mellitus without complications] Onset: 09-23-2024 10-01-2024 Chronic Diabetes mellitus without complication (4 sources) Hyperglycemia; Translations: [Hyperglycemia, unspecified] 09-03-2023 Episodic Disorders of lipid metabolism (12 sources) Hyperlipidemia; Translations: [Hyperlipidemia, unspecified] Onset: 09-04-2024 06-28-2020 Chronic Essential hypertension (9 sources) Hypertensive disorder; Translations: [Essential (primary) hypertension] Onset: 03-22-2025 06-28-2020 Chronic Genitourinary symptoms and ill-defined conditions (5 sources) Increased frequency of urination; Translations: [Frequency of micturition] 06-10-2023 Episodic Immunizations and screening for infectious disease (6 sources) Needs influenza immunization; Translations: [Encounter for immunization] 07-27-2020 Episodic Other lower respiratory disease (3 sources) Dyspnea; Translations: [Shortness of breath] 07-16-2024 Episodic Other lower respiratory disease (2 sources) Shortness of breath; Translations: [Shortness of breath] Onset: 09-04-2024 Episodic Other screening for suspected conditions (not mental disorders or infectious disease) (7 sources) Raised prostate specific antigen; Translations: [Elevated prostate specific antigen [PSA]] Onset: 10-15-2024 09-03-2023 Episodic Peripheral and visceral atherosclerosis (8 sources) Arteriosclerotic vascular disease; Translations: [Unspecified atherosclerosis] Onset: 09-04-2024 06-27-2019 Chronic Thyroid disorders (7 sources) Hypothyroidism; Translations: [Hypothyroidism, unspecified] Onset: 06-26-2024 06-28-2020 Chronic Past or Other Problems Problem Classification Problem Date Documented Da te Episodic/Chronic Cardiac dysrhythmias (2 sources) Sinus bradycardia; Translations: [Bradycardia, unspecified] Onset: 09-04-2024 06-29-2024 Episodic Unclassified (5 sources) 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 [place], [place] [address] OFFICE VISIT Date of Service: 03/22/25 MR#: [id number] Acct: [id number] Name: MARY MCLEAN Rep #: [id number] : 1940 Provider: Dr. Giacomo Brambila MD Age/Sex: 84/M Location: [facility] [place] Status: Signed HPI HPI History of Present Illness Details: This gentleman with history of diabetes mellitus, hypertension, PVCs, chronic kidney disease and and moderate to moderately severe CAD noted on coronary CT angiography, is here for follow-up visit. Denies any chest pains. According to him, his shortness of breath with exertion is mildly improved but not completely resolved. Denies any orthopnea or PND. No ankle edema. Denies any palpitations. No lightheadedness or dizziness. No syncope or presyncope. Intake Vital Signs 01/07/25 14:23 03/22/25 08:07 Height 5 ft 10 in 5 ft 10 in Weight: 190 lb 188 lb BMI 27.2 26.9 BP 144/75 H 141/78 H Blood Pressure Location Lt brachial Lt brachial Position Sitting Sitting Respiration 18 18 Pulse 49 L 63 Pulse Source Monitor NIBP Pulse Oximetry (%) 96 Oxygen Delivery Method room air Intake Visit Reasons: 3 M FU Break Out Worker Required: No Accompanied by: Self Is patient in pain?: No Allergies lisinopril Adverse Reaction (Severe, Verified 03/22/25 09:32) renal insuff losartan Adverse Reaction (Severe, Verified 03/22/25 09:32) renal insuff Medications ???Medication ???Instructions ???Recorded ???Confirmed ???Type aspirin 81 mg tablet,delayed 81 mg PO DAILY 09/23/18 03/22/25 H istory release (Adult Low Dose Aspirin) ferrous sulfate 325 mg (65 mg 325 mg PO DAILY 09/23/18 03/22/25 History iron) tablet (Feosol) cetirizine 10 mg capsule (Zyrtec) 10 mg PO DAILY 06/29/24 03/22/25 History levothyroxine 112 mcg tablet 112 mcg PO DAILY #90 tabs 06/30/24 03/22/25 Rx hydrochlorothiazide 25 mg tablet 25 mg PO QDAY #90 tabs 09/23/24 Rx isosorbide mononitrate 60 mg 60 mg PO QDAY #90 tabs 01/07/25 Rx tablet,extended release 24 hr atorvastatin 20 mg tablet (Lipitor) 20 mg PO DAILY #90 tabs 5 03/22/25 Rx carvedilol 3.125 mg tablet 3.125 mg PO BID #180 tabs 02/09/25 03/22/25 Rx diltiazem HCl 240 mg capsule,24 240 mg PO DAILY #90 caps 02/09/25 03/22/25 Rx hr,extended release metformin 500 mg tablet 500 mg PO BID #90 tabs 02/25/25 Rx Ejection fraction %: 65 Have you fallen in the past year?: No PFSH Medical History Anemia Chronic renal insufficiency, stage III (moderate) Hepatitis A [place] (hard of hearing) Hyperlipidemia Hypertension 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 Sinus bradycardia Family History Father Alzheimer's disease Hypertension Diabetes Mother CAD (coronary artery disease) Brother CAD (coronary artery disease) Diabetes Social History Smoking Status: Former smoker ROS Const Const: Positive for fatigue and weakness; Negative for headache(s) or weight gain ENT ENT: Negative for headache(s), dizziness, Nosebleed/epistaxis or balance problems Cardio Chest Pain: No Palpitations: No Edema: None Muscle aches with walking: None Resp Respiratory: Positive for SOB with activity; Negative for SOB at rest or SOB orthopnea SOB lying down GI GI: Negative nausea, vomiting or heartburn Musc Musc: Negative for muscle aches/ myalgia, muscle weakness, joint pain or balance problems Neuro Neuro: Positive for weakness; Negative for dizziness, lightheadedness, near syncope, syncope or headache(s) Endo Endo: Positive for fatigue Cardiology Exam Const Appearance: comfortable and no acute distress Nutritional Appearance: well nourished Neck Neck: no JVD Carotids: Negative bruit Chest Auscultation: Bilateral: Clear to Auscultation Cardio Rate: regular rate Rhythm: regular rhythm Heart sounds: S1 normal and S2 normal Neuro General: patient alert, patient awake and patient oriented x3 Extremities Lower Extremity Edema: None: Bilateral Supplemental Info Supplemental Information Echocardiogram 08/11/2024: The left ventricular ejection fraction is 65 %. Mild tricuspid valve insufficiency. Right ventricular systolic pressure estimated to be 45 mmHg. Aortic sclerosis, no stenosis. Atherosclerotic aortic root Stress Test Report 08/11/2024: Procedure: Exercise tolerance test/imaging study Indications: Dyspnea Consent: Per the patient Procedure: The patient exercised on a Yonas protocol for 5 minutes and 29 seconds achieving a peak heart rate of 109 bpm (80% predicted maximal heart rate) with a peak blood pressur (more content not included)... Normal [facility] Absolute lymphocyte countOrd ered By: Kim Ewing on 02-09-2025 Lymphocytes Auto (Unsp spec) [#/Vol] 2.01 10*3/uL 0.83-4.51 [facility] Absolute neutrophil countOrd ered By: Kim Ewing on 02-09-2025 Neutrophils (Bld) [#/Vol] 6.4 10*3/uL 2.0-7.7 [facility] Anion gap in Serum or Plasma Ordered By: Kim Ewing on 02-09-2025 Anion gap [Moles/Vol] 13 mmol/L 5-15 [facility] Automated lymphocyte count a s percentage of total leukocytesOrdered By: Kim Ewing on 02-09-2025 Lymphocytes/100 WBC Auto (Unsp spec) 21.1 % 19-41 [facility] BUN/creatinine ratioOrdered By: Kim Ewing on 02-09-2025 Urea nitrogen/Creatinine [Mass ratio] 13.0 mg/mg 10-20 [facility] Basophil percentageOrdered B y: Kim Ewing on 02-09-2025 Basophils/100 WBC (Bld) 0.6 % 0-1 [facility] Bilirubin, totalOrdered By: Kim Ewing on 02-09-2025 Bilirubin [Mass/Vol] 0.40 mg/dL 0.00-1.30 [facility] CBC W/Diff, Automatedon - Absolute Lymph 2.01 X10 3/uL Normal 0.83-4.51 [facility] Comment on above: Performed By: #### L 500.4050, L501.9910, L500.4100, L501.9520, L100.0100 #### [facility] [address] [place], [address] Absolute Neut 6.4 X10 3/uL Normal 2.0-7.7 [facility] Comment on above: Performed By: #### L 500.4050, L501.9910, L500.4100, L501.9520, L100.0100 #### [facility] [address] [place], [address] Basophils/100 WBC (Bld) 0.6 % Normal 0-1 [facility] Comment on above: Performed By: #### L 500.4050, L501.9910, L500.4100, L501.9520, L100.0100 #### [facility] [address] [place], [address] Eosinophils/100 WBC (Bld) 2.4 % Normal 0-5 [facility] Comment on above: Performed By: #### L 500.4050, L501.9910, L500.4100, L501.9520, L100.0100 #### [facility] [address] [place], [address] Erythrocyte distribution width (RBC) [Ratio] 13.8 % Normal 11.6-14.6 [facility] Comment on above: Performed By: #### L 500.4050, L501.9910, L500.4100, L501.9520, L100.0100 #### [facility] [address] [place], [address] Hematocrit (Bld) [Volume fraction] 41.2 % Normal 40-54 [facility] Comment on above: Performed By: #### L 500.4050, L501.9910, L500.4100, L501.9520, L100.0100 #### [facility] [address] [place] [place], [address] Hemoglobin (Bld) [Mass/Vol] 13.5 g/dL Normal 13.0-16.5 [facility] Comment on above: Performed By: #### L 500.4050, L501.9910, L500.4100, L501.9520, L100.0100 #### [facility] [address] [place], [address] IG% 0.600 Normal 0.0-0.9 [facility] Comment on above: Result Comment: IG% - Immature Granulocytes (promyelocytes, myelocytes and metamyelocytes) > 1% indicates that a LEFT SHIFT is Present. Performed By: #### L 500.4050, L501.9910, L500.4100, L501.9520, L100.0100 #### [facility] [address] [place], [address] Lymphocytes/100 WBC (Bld) 21.1 % Normal 19-41 [facility] Comment on above: Performed By: #### L 500.4050, L501.9910, L500.4100, L501.9520, L100.0100 #### [facility] [address] [place], [address] MCH (RBC) [Entitic mass] 31.0 pg Normal 27.0-32.0 [facility] Comment on above: Performed By: #### L 500.4050, L501.9910, L500.4100, L501.9520, L100.0100 #### [facility] [address] [place], [address] MCHC (RBC) [Mass/Vol] 32.8 g/dL Normal 32-36 [facility] Comment on above: Performed By: #### L 500.4050, L501.9910, L500.4100, L501.9520, L100.0100 #### [facility] [address] [place] [place], [address] MCV (RBC) [Entitic vol] 94.7 fL High 80-94 [facility] Comment on above: Performed By: #### L 500.4050, L501.9910, L500.4100, L501.9520, L100.0100 #### [facility] [address] [place], [address] Monocytes/100 WBC (Bld) 8.2 % Normal 0-10 [facility] Comment on above: Performed By: #### L 500.4050, L501.9910, L500.4100, L501.9520, L100.0100 #### [facility] [address] [place] [place], [address] Neutrophils/100 WBC (Bld) 67.1 % Normal 47-70 [facility] Comment on above: Performed By: #### L 500.4050, L501.9910, L500.4100, L501.9520, L100.0100 #### [facility] [address] [place] [place], [address] Nucleated RBC (Bld) [#/Vol] 0 10*3/uL Normal 0-5 [facility] Comment on above: Performed By: #### L 500.4050, L501.9910, L500.4100, L501.9520, L100.0100 #### [facility] [address] [place], [address] Platelet mean volume (Bld) [Entitic vol] 11.0 fL Normal 6.2-12.0 [facility] Comment on above: Performed By: #### L 500.4050, L501.9910, L500.4100, L501.9520, L100.0100 #### [facility] [address] [place], [address] Platelets (Bld) [#/Vol] 409 10*3/uL Normal 150-450 [facility] Comment on above: Performed By: #### L 500.4050, L501.9910, L500.4100, L501.9520, L100.0100 #### [facility] [address] [place], [address] RBC (Bld) [#/Vol] 4.35 10*6/uL Low 4.6-6.2 [facility] Comment on above: Performed By: #### L 500.4050, L501.9910, L500.4100, L501.9520, L100.0100 #### [facility] [address] [place], [address] RDW SD 48.0 fl High 35.1-43.9 [facility] Comment on above: Performed By: #### L 500.4050, L501.9910, L500.4100, L501.9520, L100.0100 #### [facility] [address] [place], [address] WBC (Bld) [#/Vol] 9.5 10*3/uL Normal 4.4-11.0 [facility] Comment on above: Performed By: #### L 500.4050, L501.9910, L500.4100, L501.9520, L100.0100 #### [facility] [address] [place], [address] Calculated very low density lipoprotein (VLDL) cholesterol measurementOrdered By: Kim Ewing on 02-09-2025 Calculated very low density lipoprotein (VLDL) cholesterol measurement 24 mg/dL 5-40 [facility] Carbon dioxide, total [Moles /volume] in Central venous bloodOrdered By: Kim Ewing on 02-09-2025 CO2 [Moles/Vol] 27.5 mmol/L 21.0-32.0 [facility] Chloride assayOrdered By: Do ra Ewing on 02-09-2025 Chloride [Moles/Vol] 99 mmol/L 98-108 [facility] Comprehensive Metabolic Prof ilon 02-09-2025 Albumin [Mass/Vol] 3.6 g/dL Normal 3.4-4.8 [facility] Comment on above: Performed By: #### L 500.4050, L501.9910, L500.4100, L501.9520, L100.0100 #### [facility] [address] [place], [address] Albumin/Globulin [Mass ratio] 1.0 {ratio} Normal 0.9-2.4 [facility] Comment on above: Performed By: #### L 500.4050, L501.9910, L500.4100, L501.9520, L100.0100 #### [facility] [address] [place], [address] ALK PHOS 103 U/L Normal 40-129 [facility] Comment on above: Performed By: #### L 500.4050, L501.9910, L500.4100, L501.9520, L100.0100 #### [facility] [address] [place], [address] ALT [Catalytic activity/Vol] 20 U/L Normal <=46 [facility] Comment on above: Performed By: #### L 500.4050, L501.9910, L500.4100, L501.9520, L100.0100 #### [facility] [address] [place], [address] AST [Catalytic activity/Vol] 28 U/L Normal <=37 [facility] Comment on above: Performed By: #### L 500.4050, L501.9910, L500.4100, L501.9520, L100.0100 #### [facility] [address] [place], [address] Bilirubin [Mass/Vol] 0.40 mg/dL Normal 0.00-1.30 [facility] Comment on above: Performed By: #### L 500.4050, L501.9910, L500.4100, L501.9520, L100.0100 #### [facility] [address] [place], [address] BUN/CRE 13.0 RATIO Normal 10-20 [facility] Comment on above: Performed By: #### L 500.4050, L501.9910, L500.4100, L501.9520, L100.0100 #### [facility] [address] [place], [address] Calcium [Mass/Vol] 9.6 mg/dL Normal 7.6-11.0 [facility] Comment on above: Performed By: #### L 500.4050, L501.9910, L500.4100, L501.9520, L100.0100 #### [facility] [address] [place], [address] Chloride [Moles/Vol] 99 mmol/L Normal 98-108 [facility] Comment on above: Performed By: #### L 500.4050, L501.9910, L500.4100, L501.9520, L100.0100 #### [facility] [address] [place], [address] CO2 [Moles/Vol] 27.5 mmol/L Normal 21.0-32.0 [facility] Comment on above: Performed By: #### L 500.4050, L501.9910, L500.4100, L501.9520, L100.0100 #### [facility] [address] [place], [address] Creatinine [Mass/Vol] 1.49 mg/dL High 0.70-1.20 [facility] Comment on above: Performed By: #### L 500.4050, L501.9910, L500.4100, L501.9520, L100.0100 #### [facility] [address] [place], [address] GAP 13 Normal 5-15 [facility] Comment on above: Performed By: #### L 500.4050, L501.9910, L500.4100, L501.9520, L100.0100 #### [facility] [address] [place], [address] GFR/1.73 sq M.predicted among non-blacks MDRD (S/P/Bld) [Vol rate/Area] 45 mL/min/{1.73_m2} Low >[address] [facility] Comment on above: Result Comment: mL/m in/1.73m2 CKD-EPI Creatinine Equation (2020) Performed By: #### L 500.4050, L501.9910, L500.4100, L501.9520, L100.0100 #### [facility] [address] [place], [address] Globulin (S) [Mass/Vol] 3.6 g/dL Normal 2.2-4.2 [facility] Comment on above: Performed By: #### L 500.4050, L501.9910, L500.4100, L501.9520, L100.0100 #### [facility] [address] [place], [address] Glucose [Mass/Vol] 179 mg/dL High 70-99 [facility] Comment on above: Performed By: #### L 500.4050, L501.9910, L500.4100, L501.9520, L100.0100 #### [facility] [address] [place], [address] Potassium [Moles/Vol] 5.2 mmol/L High 3.3-5.1 [facility] Comment on above: Performed By: #### L 500.4050, L501.9910, L500.4100, L501.9520, L100.0100 #### [facility] [address] [place], [address] Sodium [Moles/Vol] 140 mmol/L Normal 133-145 [facility] Comment on above: Performed By: #### L 500.4050, L501.9910, L500.4100, L501.9520, L100.0100 #### [facility] [address] [place], [address] T PROT 7.3 g/dL Normal 5.9-8.4 [facility] Comment on above: Performed By: #### L 500.4050, L501.9910, L500.4100, L501.9520, L100.0100 #### [facility] [address] [place], [address] Urea nitrogen [Mass/Vol] 19 mg/dL Normal 4-19 [facility] Comment on above: Performed By: #### L 500.4050, L501.9910, L500.4100, L501.9520, L100.0100 #### [facility] [address] [place], [address] Eosinophil percentageOrdered By: Kim Ewing on 02-09-2025 Eosinophils/100 WBC (Bld) 2.4 % 0-5 [facility] Erythrocyte distribution wid th ratioOrdered By: Kim Ewing on 02-09-2025 Erythrocyte distribution width (RBC) [Ratio] 13.8 % 11.6-14.6 [facility] Erythrocyte distribution wid th standard deviationOrdered By: Kim Ewing on 02-09-2025 Erythrocyte distribution width (RBC) [Ratio] 48.0 fl High 35.1-43.9 [facility] Glomerular filtration rate ( GFR) estimation/1.73 sq m using serum, plasma, or whole bOrdered By: Kim Ewing on 02-09-2025 GFR/1.73 sq M.predicted among non-blacks MDRD (S/P/Bld) [Vol rate/Area] 45 mL/min/{1.73_m2} Low >[address] [facility] Comment on above: mL/min/1.73m2 CKD-EP I Creatinine Equation (2020) Hematocrit Auto (Bld) [Volum e fraction]Ordered By: Kim Ewing on 02-09-2025 Hematocrit (Bld) [Volume fraction] 41.2 % 40-54 [facility] Hemoglobin measurementOrdere d By: Kim Ewing on 02-09-2025 Hemoglobin (Bld) [Mass/Vol] 13.5 g/dL 13.0-16.5 [facility] Immature granulocytes/100 WB C Auto (Bld)Ordered By: Kim Ewing on 02-09-2025 Immature granulocytes/100 WBC (Bld) 0.600 % 0.0-0.9 [facility] Comment on above: IG% - Immature Granu locytes (promyelocytes, myelocytes and metamyelocytes) > 1% indicates that a LEFT SHIFT is Present. LDL calc ser/plasOrdered By: Kim Ewing on 02-09-2025 Cholesterol in LDL [Mass/Vol] 97 mg/dL [facility] Comment on above: Kzhazahnjt=716-995 m g/dL & Higher Xyzt=357 mg/dL or greater Laboratory - Chemistry and C hemistry - challengeOrdered By: Kim Ewing on 02-09-2025 AST [Catalytic activity/Vol] 28 U/L <38 [facility] Lipid Profileon 02-09-2025 CHOL:HDL 3.30 Normal [facility] Comment on above: Performed By: #### L 500.4050, L501.9910, L500.4100, L501.9520, L100.0100 #### [facility] [address] [place], [address] Cholesterol [Mass/Vol] 173 mg/dL Normal <=[address] [facility] Comment on above: Result Comment: Chol esterol level, Desirable <200 mg/dL Borderline high cholesterol 200-239 mg/dL High cholesterol >=240 mg/dL Recommendations of the NCEP Adult Treatment Panel for the following risk-cutoff thresholds for the [place] population. Performed By: #### L 500.4050, L501.9910, L500.4100, L501.9520, L100.0100 #### [facility] [address] [place], [address] Cholesterol in HDL [Mass/Vol] 52 mg/dL Normal [facility] Comment on above: Result Comment: [place] Cholesterol Education Program (NCEP) guidelines: <40 mg/dL: Low HDL-cholesterol (major risk factor for CHD) >= 60 mg/dL: High HDL-cholesterol (negative risk factor for CHD) HDL-cholesterol is affected by a number of factors, e.g. smoking, exercise, hormones, sex and age. Performed By: #### L 500.4050, L501.9910, L500.4100, L501.9520, L100.0100 #### [facility] [address] [place], [address] Cholesterol in LDL [Mass/Vol] 97 mg/dL Normal [facility] Comment on above: Result Comment: Bord tyhemb=499-832 mg/dL Higher Qnih=602 mg/dL or greater Performed By: #### L 500.4050, L501.9910, L500.4100, L501.9520, L100.0100 #### [facility] [address] [place], [address] Cholesterol in VLDL [Mass/Vol] 24 mg/dL Normal 5-40 [facility] Comment on above: Performed By: #### L 500.4050, L501.9910, L500.4100, L501.9520, L100.0100 #### [facility] [address] [place], [address] Triglyceride [Mass/Vol] 118 mg/dL Normal [facility] Comment on above: Result Comment: The drugs N-Acetylcysteine and Metamizole may falsely depress this assay. Normal range: <150 mg/dL Borderline High: 150-199 mg/dL High: 200-499 mg/dL Very High: >500 mg/dL Performed By: #### L 500.4050, L501.9910, L500.4100, L501.9520, L100.0100 #### [facility] [address] [place], [address] MCV (mean corpuscular volume ) determinationOrdered By: Kim Ewing on 02-09-2025 MCV (RBC) [Entitic vol] 94.7 fL High 80-94 [facility] Mean corpuscular hemoglobin (MCH) determinationOrdered By: Kim Ewing on 02-09-2025 MCH (RBC) [Entitic mass] 31.0 pg 27.0-32.0 [facility] Mean corpuscular hemoglobin concentration (MCHC) determinationOrdered By: Kim Ewing on 02-09-2025 MCHC (RBC) [Mass/Vol] 32.8 g/dL 32-36 [facility] Mean platelet volume determi nationOrdered By: Kim Ewing on 02-09-2025 Platelet mean volume (Bld) [Entitic vol] 11.0 fL 6.2-12.0 [facility] Monocyte percentageOrdered B y: Kim Ewing on 02-09-2025 Monocytes/100 WBC (Bld) 8.2 % 0-10 [facility] Neutrophil percentageOrdered By: Kim Ewing on 02-09-2025 Neutrophils/100 WBC (Bld) 67.1 % 47-70 [facility] Nucleated red blood cell per centageOrdered By: Kim Ewing on 02-09-2025 Nucleated RBC/100 WBC (Bld) [Ratio] 0 % 0-5 [facility] PSA,Total - Annual Screenon 02-09-2025 PSA,TOT SCREEN 4.29 ng/mL High 0.02-4.00 [facility] Comment on above: Result Comment: This test was performed using the [employer] tPSA method. Measured values of a patient??sample can vary depending on the testing procedure used. PSA values determined on patient samples by different testing procedures cannot be used interchangeably. If there is a change in PSA assays while monitoring therapy, sequential testing should be performed to confirm baseline values. Performed By: #### L 500.4050, L501.9910, L500.4100, L501.9520, L100.0100 #### [facility] [address] [place], [address] Platelet countOrdered By: Do ra Ewing on 02-09-2025 Platelets (Bld) [#/Vol] 409 10*3/uL 150-450 [facility] Potassium measurement (mass/ volume)Ordered By: Kim Ewing on 02-09-2025 Potassium (Unsp spec) [Mass/Vol] 5.2 mmol/L High 3.3-5.1 [facility] RBC Auto (Bld) [#/Vol]Ordere d By: Kim Ewing on 02-09-2025 RBC (Bld) [#/Vol] 4.35 10*6/uL Low 4.6-6.2 [facility] Screening total cholesterol/ high density lipoprotein (HDL) cholesterol ratioOrdered By: Kim Ewing on 02-09-2025 Cholesterol.total/Cholest davian in HDL [Mass ratio] 3.30 {ratio} [facility] Serum creatinine measurement (mass/volume)Ordered By: Kim Ewing on 02-09-2025 Creatinine [Mass/Vol] 1.49 mg/dL High 0.70-1.20 [facility] Serum globulin measurementOr dered By: Kim Ewing on 02-09-2025 Globulin (S) [Mass/Vol] 3.6 g/dL 2.2-4.2 [facility] Serum glucose measurement (m ass/volume)Ordered By: Kim Ewing on 02-09-2025 Glucose [Mass/Vol] 179 mg/dL High 70-99 [facility] Serum or plasma alanine lazo otransferase (ALT) measurementOrdered By: Kim Ewing on 02-09-2025 ALT [Catalytic activity/Vol] 20 U/L <47 [facility] Serum or plasma albumin purvi urement (mass/volume)Ordered By: Kim Ewing on 02-09-2025 Albumin [Mass/Vol] 3.6 g/dL 3.4-4.8 [facility] Serum or plasma albumin/glob ulin mass ratioOrdered By: Kim Ewing on 02-09-2025 Albumin/Globulin [Mass ratio] 1.0 {ratio} 0.9-2.4 [facility] Serum or plasma alkaline andres sphatase measurementOrdered By: Kim Ewing on 02-09-2025 ALP [Catalytic activity/Vol] 103 U/L 40-129 [facility] Serum or plasma calcium purvi urement (mass/volume)Ordered By: Kim Ewing on 02-09-2025 Calcium [Mass/Vol] 9.6 mg/dL 7.6-11.0 [facility] Serum or plasma cholesterol in HDL measurement (mass/volume)Ordered By: Kim Ewing on 02-09-2025 Cholesterol in HDL [Mass/Vol] 52 mg/dL >40 [facility] Comment on above: National Cholesterol Education Program (NCEP) guidelines:<40 mg/dL: Low HDL-cholesterol (major risk factor for CHD)>= 60 mg/dL: High HDL-cholesterol (negative risk factor for CHD)HDL-cholesterol is affected by a number of factors, e.g. smoking, exercise, hormones, sex and age. Serum or plasma cholesterol measurement (mass/volume)Ordered By: Kim Ewing on 02-09-2025 Cholesterol [Mass/Vol] 173 mg/dL <[address] [facility] Comment on above: Cholesterol level, D esirable <200 mg/dLBorderline high cholesterol 200-239 mg/dLHigh cholesterol >=240 mg/dLRecommendations of the NCEP Adult Treatment Panel for the following risk-cutoff thresholds for the [place] population. Serum or plasma urea nitroge n measurement (mass/volume)Ordered By: Kim Ewing on 02-09-2025 Urea nitrogen [Mass/Vol] 19 mg/dL 4-19 [facility] Sodium levelOrdered By: Kim Ewing on 02-09-2025 Sodium [Moles/Vol] 140 mmol/L 133-145 [facility] TSH DL <= 0.005 mIU/L QnOrde red By: Kmi Ewing on 02-09-2025 TSH Qn 1.440 uIU/mL 0.300-4.200 [facility] Thyroid Stim Hormone (TSH)on 02-09-2025 TSH 1.440 uIU/mL Normal 0.300-4.200 [facility] Comment on above: Performed By: #### L 500.4050, L501.9910, L500.4100, L501.9520, L100.0100 #### [facility] [address] [place], [address] Total proteinOrdered By: Gurmeet Ewing on 02-09-2025 Protein [Mass/Vol] 7.3 g/dL 5.9-8.4 [facility] Triglycerides measurementOrd ered By: Kim Ewing on 02-09-2025 Triglyceride [Mass/Vol] 118 mg/dL <199 [facility] Comment on above: The drugs N-Acetylcy steine and Metamizole may falsely depress this assay. Normal range: <150 mg/dLBorderline High: 150-199 mg/dLHigh: 200-499 mg/dLVery High: >500 mg/dL White blood cell (WBC) count Ordered By: Kim Ewing on 02-09-2025 WBC (Bld) [#/Vol] 9.5 10*3/uL 4.4-11.0 [facility] Cardiology Visit Reporton Cardiology Visit Report [facility] [address] [place] [address] OFFICE VISIT Date of Service: 01/07/25 MR#: [id number] Acct: [id number] Name: MARY MCLEAN Rep #: [id number] : 1940 Provider: Dr. Giacomo Brambila MD Age/Sex: 84/M Location: [facility] [place] Status: Signed HPI HPI History of Present Illness Details: This pleasant gentleman with history of hypertension, chronic renal insufficiency, diabetes mellitus, PVCs and dyslipidemia is here for follow-up visit. He has had coronary CT angio done. It showed moderate CAD. Per patient, his shortness of breath is improved than before but not completely resolved. No orthopnea. No PND. No ankle edema. Denies any chest pains. No palpitations. Intake Vital Signs 09/29/24 12:15 01/07/25 14:23 Height 5 ft 10 in 5 ft 10 in Weight: 190 lb BMI 27.2 BP 144/75 H Blood Pressure Location Lt brachial Position Sitting Respiration 18 Pulse 49 L Pulse Source Monitor Pulse Oximetry (%) 96 Oxygen Delivery Method room air Intake Visit Reasons: 3 M Break Out Worker Required: No Accompanied by: Self Is patient in pain?: No Allergies lisinopril Adverse Reaction (Severe, Verified 01/07/25 14:24) renal insuff losartan Adverse Reaction (Severe, Verified 01/07/25 14:24) renal insuff Medications ???Medication ???Instructions ???Recorded ???Confirmed ???Type aspirin 81 mg tablet,delayed 81 mg PO DAILY 09/23/18 01/07/25 H istory release (Adult Low Dose Aspirin) ferrous sulfate 325 mg (65 mg 325 mg PO DAILY 09/23/18 01/07/25 History iron) tablet (Feosol) atorvastatin 20 mg tablet (Lipitor) 20 mg PO DAILY #90 tabs 02/11/2 4 01/07/25 Rx carvedilol 3.125 mg tablet 3.125 mg PO BID #180 tabs 02/12/24 01/07/25 Rx diltiazem HCl 240 mg capsule,24 240 mg PO DAILY #90 caps 02/12/24 01/07/25 Rx hr,extended release metformin 500 mg tablet 500 mg PO DAILY #90 tabs 02/12/24 01/07/25 Rx cetirizine 10 mg capsule (Zyrtec) 10 mg PO DAILY 06/29/24 01/07/25 History levothyroxine 112 mcg tablet 112 mcg PO DAILY #90 tabs 06/30/24 01/07/25 Rx hydrochlorothiazide 25 mg tablet 25 mg PO QDAY #90 tabs 09/23/24 Rx Have you fallen in the past year?: No Nurse's Note: pt does not have a list of medications nor does he know what he's taking [facility] Medical History Sinus bradycardia Chronic renal insufficiency, stage III (moderate) 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 [place] (hard of hearing) Hepatitis A Hypothyroid Anemia Hypertension Hyperlipidemia Family History Father Alzheimer's disease Hypertension Diabetes Mother CAD (coronary artery disease) Brother CAD (coronary artery disease) Diabetes Social History Smoking Status: Former smoker ROS Const Const: Negative for fatigue or weakness ENT ENT: Negative for dizziness or balance problems Cardio Chest Pain: No Palpitations: No Edema: None Muscle aches with walking: None Resp Respiratory: Positive for SOB with activity; Negative for SOB at rest or SOB orthopnea SOB lying down GI GI: Negative nausea, vomiting or heartburn Musc Musc: Negative for muscle weakness or balance problems Neuro Neuro: Negative for dizziness, lightheadedness, near syncope, syncope or weakness Endo Endo: Negative for fatigue Cardiology Exam Const Appearance: comfortable and no acute distress Nutritional Appearance: well nourished Neck Neck: no JVD Carotids: Negative bruit Chest Auscultation: Bilateral: Clear to Auscultation Cardio Rate: regular rate Rhythm: regular rhythm Heart sounds: S1 normal and S2 normal Neuro General: patient alert, patient awake and patient oriented x3 Extremities Lower Extremity Edema: None: Bilateral Supplemental Info Supplemental Information Echocardiogram 08/11/2024: The left ventricular ejection fraction is 65 %. Mild tricuspid valve insufficiency. Right ventricular systolic pressure estimated to be 45 mmHg. Aortic sclerosis, no stenosis. Atherosclerotic aortic root Stress Test Report 08/11/2024: Procedure: Exercise tolerance test/imaging study Indications: Dyspnea Consent: Per the patient Procedure: The patient exercised on a Yonas protocol for 5 minutes and 29 seconds achieving a peak heart rate of 109 bpm (80% predicted maximal heart rate) with a peak blood pressure 160/80 mmHg and a peak MET capacity of 7.0 METs. The baseline ECG demonstrated sinus rhythm with nonspecific ST changes. The peak exercise ECG demonstrated no diagnostic ischemic changes. Occasional PVCs noted pretest, frequent PVCs during exercise. The functional capacity was considered average f (more content not included)... Normal [facility] Basic Metabolic Profile (BMP )on 09-29-2024 BUN/CRE 12.9 RATIO Normal 08-09 [facility] Comment on above: Performed By: #### L 500.4100, L500.2500 ####[facility] [address] [place], [address] CA,Total 10.1 mg/dL Normal 8.5-10.1 [facility] Comment on above: Performed By: #### L 500.4100, L500.2500 ####[facility] [address] [place], [address] Chloride [Moles/Vol] 107 mmol/L Normal 98-107 [facility] Comment on above: Performed By: #### L 500.4100, L500.2500 ####[facility] [address] [place], [address] CO2 [Moles/Vol] 31.0 mmol/L Normal 21.0-32.0 [facility] Comment on above: Performed By: #### L 500.4100, L500.2500 ####[facility] [address] [place], [address] Creatinine [Mass/Vol] 1.47 mg/dL High 0.70-1.30 [facility] Comment on above: Result Comment: The validity of the calculated GFR GFRAA in patients over 70 years has not been determined. Clinical correlation is essential. Performed By: #### L 500.4100, L500.2500 ####[facility] [address] [place], [address] EST GFR - AA 58 mL/min Low >60 [facility] Comment on above: Result Comment: Afri can [place] GFR Calc Performed By: #### L 500.4100, L500.2500 ####[facility] [address] [place], [address] GAP 5 Normal 5-15 [facility] Comment on above: Performed By: #### L 500.4100, L500.2500 ####[facility] [address] [place], [address] GFR/1.73 sq M.predicted among non-blacks MDRD (S/P/Bld) [Vol rate/Area] 48 mL/min/{1.73_m2} Low >[address] [facility] Comment on above: Result Comment: Non- GFR Calc Performed By: #### L 500.4100, L500.2500 ####[facility] [address] [place], [address] Glucose [Mass/Vol] 112 mg/dL High 74-106 [facility] Comment on above: Result Comment: Fast ing Glucose result from 100 to 125 mg/dL suggests IMPAIRED HOMEOSTASIS per A.D.A. criteria. Performed By: #### L 500.4100, L500.2500 ####[facility] [address] [place], [address] Potassium [Moles/Vol] 5.4 mmol/L High 3.5-5.1 [facility] Comment on above: Performed By: #### L 500.4100, L500.2500 ####[facility] [address] [place], [address] Sodium [Moles/Vol] 143 mmol/L Normal 136-145 [facility] Comment on above: Performed By: #### L 500.4100, L500.2500 ####[facility] [address] [place], [address] Urea nitrogen [Mass/Vol] 19 mg/dL High 7-18 [facility] Comment on above: Performed By: #### L 500.4100, L500.2500 ####[facility] [address] [place], [address] Lipid Profileon 09-29-2024 Cholesterol [Mass/Vol] 175 mg/dL Normal [address] [facility] Comment on above: Result Comment: <200 mg/dL Desirable 200-240 mg/dL Borderline >240 mg/dL High Risk Performed By: #### L 500.4100, L500.2500 ####[facility] [address] [place], [address] Cholesterol in HDL [Mass/Vol] 57 mg/dL Normal [facility] Comment on above: Result Comment: The drugs N-Acetylcysteine and Metamizole may falsely depress this assay. Reference Range HDL <40 mg/dL Low HDL Cholesterol HDL >or= 60 mg/dL High HDL Cholesterol Performed By: #### L 500.4100, L500.2500 ####[facility] [address] [place], [address] Cholesterol in LDL [Mass/Vol] 95 mg/dL Normal 0-130 [facility] Comment on above: Performed By: #### L 500.4100, L500.2500 ####[facility] [address] [place], [address] Cholesterol in VLDL [Mass/Vol] 23 mg/dL Normal 5-40 [facility] Comment on above: Performed By: #### L 500.4100, L500.2500 ####[facility] [address] [place], [address] Triglyceride [Mass/Vol] 113 mg/dL Normal [facility] Comment on above: Result Comment: The drugs N-Acetylcysteine and Metamizole may falsely depress this assay. Serum Triglycerides Reference Interval Normal <150 mg/dL Borderline high 150 - 199 mg/dL High 200 - 499 mg/dL Very High > or = 500 mg/dL Performed By: #### L 500.4100, L500.2500 ####[facility] [address] [place], [address] Coronary Angiography CTon Coronary Angiography CT [facility] [address] [place] [address] 09/25/24 0954 MR#: [id number] Acct: [id number] Name: MARY MCLEAN Agustina Rep #: [id number] : 1940 84 From: Ta Fajardo MD PCP: MARCO Hall Status:REG CLI Y Location: CT CCTA w/Cont Coronary Arteries Date of Study:: 09/15/24 AbNormal previous stress test Coronary Calcium Scoring: High-resolution Computed Tomographic imaging of the chest was performed on [09/15/2024], with particular attention paid to the coronary arteries. Intravenous contrast agent was administered per protocol and images reconstructed and displayed. LEFT MAIN CORONARY ARTERY: Arises from the left coronary cusp. There was mild calcification noted by peak into left anterior descending artery left circumflex artery [] LEFT ANTERIOR DESCENDING CORONARY ARTERY: This is a medium size vessel with significant proximal and mid calcification and narrowing noted of the first diagonal vessel. There is at least moderate narrowing of the mid left anterior descending artery. The vessel continues towards the apex of the ventricle. [] LEFT CIRCUMFLEX CORONARY ARTERY: This was a large vessel with moderate calcification with moderate stenosis noted in the midsegment. [] RIGHT CORONARY ARTERY: Dominant right coronary artery with proximal and mid segment calcification which is moderate the may be a distal posterior descending artery occlusion noted. There is some motion artifact present. CORONARY CALCIUM SCORE: Not performed Moderate to moderately severe atherosclerotic calcification noted involving the left anterior descending artery, left circumflex artery, and right coronary artery. Obstructive disease cannot be excluded in these 3 vessels. However the extent of the calcification precludes detailed assessment of the segments. [] 09/25/24 0957 Date Ta Fajardo MD Cosigner Signature (if applicable): Date CC: MELTER CLERK-C Kim Ewing; Dr. Ta Fajardo MD; MARINO Baltazar Signed Normal [facility] Cardiology Visit Reporton Cardiology Visit Report [facility] [address] [place] [address] OFFICE VISIT Date of Service: 09/23/24 MR#: [id number] Acct: [id number] Name: MARY MCLEAN Rep #: [id number] : 1940 Provider: Dr. Giacomo Brambila MD Age/Sex: 84/M Location: [facility] Status: Signed HPI HPI History of Present Illness Details: This pleasant gentleman is here for follow-up visit. Denies any chest pains. Continues to have his shortness of breath with moderate exertion. No orthopnea or PND. No ankle edema. No lightheadedness or dizziness. No syncope or presyncope. Intake Vital Signs 07/16/24 08:26 09/15/24 12:33 09/23/24 08:47 Height 5 ft 10 in 5 ft 10 in 5 ft 10 in Weight: 194 lb BMI 27.8 BP 150/81 H Blood Pressure Location Rt brachial Position Sitting Respiration 16 Pulse 55 L Pulse Source NIBP Intake Visit Reasons: 3 M FU Break Out Worker Required: No Accompanied by: Self Is patient in pain?: No Allergies lisinopril Adverse Reaction (Severe, Verified 09/23/24 11:20) renal insuff losartan Adverse Reaction (Severe, Verified 09/23/24 11:20) renal insuff Medications ???Medication ???Instructions ???Recorded ???Confirmed ???Type aspirin 81 mg tablet,delayed 81 mg PO DAILY 09/23/18 09/23/24 History release (Adult Low Dose Aspirin) ferrous sulfate 325 mg (65 mg 325 mg PO DAILY 09/23/18 09/23/24 History iron) tablet (Feosol) atorvastatin 20 mg tablet (Lipitor) 20 mg PO DAILY #90 tabs 02/12/24 09/23/24 Rx carvedilol 3.125 mg tablet 3.125 mg PO BID #180 tabs 02/12/24 09/23/24 Rx diltiazem HCl 240 mg capsule,24 240 mg PO DAILY #90 caps 02/12/24 09/23/24 Rx hr,extended release metformin 500 mg tablet 500 mg PO DAILY #90 tabs 02/12/24 09/23/24 Rx cetirizine 10 mg capsule (Zyrtec) 10 mg PO DAILY 06/29/24 09/23/24 History levothyroxine 112 mcg tablet 112 mcg PO DAILY #90 tabs 06/30/24 09/23/24 Rx Ejection fraction %: 65 Have you fallen in the past year?: No PFSH Medical History Anemia Chronic renal insufficiency, stage III (moderate) Hepatitis A [place] (hard of hearing) Hyperlipidemia Hypertension 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 Sinus bradycardia Family History Father Alzheimer's disease Hypertension Diabetes Mother CAD (coronary artery disease) Brother CAD (coronary artery disease) Diabetes Social History Smoking Status: Former smoker ROS Const Const: Positive for fatigue; Negative for weakness, headache(s) or weight gain ENT ENT: Negative for headache(s), dizziness, Nosebleed/epistaxis or balance problems Cardio Chest Pain: No Palpitations: No Edema: None Muscle aches with walking: None Resp Respiratory: Positive for SOB with activity and SOB at rest; Negative for SOB orthopnea SOB lying down GI GI: Negative nausea, vomiting or heartburn Musc Musc: Negative for muscle aches/ myalgia, muscle weakness, joint pain or balance problems Neuro Neuro: Negative for dizziness, lightheadedness, near syncope, syncope, headache(s) or weakness Endo Endo: Positive for fatigue Cardiology Exam Const Appearance: comfortable and no acute distress Nutritional Appearance: well nourished Neck Neck: no JVD Carotids: Negative bruit Chest Auscultation: Bilateral: Clear to Auscultation Cardio Rate: regular rate Rhythm: regular rhythm Heart sounds: S1 normal and S2 normal Neuro General: patient alert, patient awake and patient oriented x3 Extremities Lower Extremity Edema: None: Bilateral Supplemental Info Supplemental Information Stress Test Report 08/11/2024: Procedure: Exercise tolerance test/imaging study Indications: Dyspnea Consent: Per the patient Procedure: The patient exercised on a Yonas protocol for 5 minutes and 29 seconds achieving a peak heart rate of 109 bpm (80% predicted maximal heart rate) with a peak blood pressure 160/80 mmHg and a peak MET capacity of 7.0 METs. The baseline ECG demonstrated sinus rhythm with nonspecific ST changes. The peak exercise ECG demonstrated no diagnostic ischemic changes. Occasional PVCs noted pretest, frequent PVCs during exercise. The functional capacity was considered average for age. There was no complaints of chest pain during exercise or in recovery. However the patient did feel short of breath.. The examination was discontinued secondary to dyspnea and leg weakness. The patient was injected with 10.2 mCi of technetium 99m Cardiolite and subsequently rest SPECT Cardiolite nuclear imaging was obtained in the horizontal long, vertical long, and short axis views. Post-exercise, the patient was injected with 30.9 (more content not included)... Normal [facility] CREATININE FINGERSTICKon CREATININE WB < 1.0 Normal 0.70-1.30 [facility] Comment on above: Performed By: #### L 9100.0200 ####[facility] [address] [place], [address] EGFR WB > 60.0000 Normal >60 [facility] Comment on above: Performed By: #### L 9100.0200 ####[facility] [id number] [place], [address] Cardiac Onl yon 09-15-[address] Cardiac Only [facility] Imaging Services [address] [place] [address] Cardiac Only MR#: [id number] Acct: [id number] Name: MARY MCLEAN Rep #: [id number] : 1940 M 83 From: Freddy Murphy MD PCP: Kim Ewing MELTER CLERK-C Status: REG [facility] Study: Limited Chest CT Cardiac Only Date of Exam: Exam# [id number] Ordering Dr: Joann Carroll PA [id number] EXAM: CT WITH INTRAVENOUS CONTRAST CLINICAL INDICATION: Abnormal stress test OVER READ ONLY TECHNIQUE: Helically acquired images were obtained of the heart evaluation cardiac structure morphology with intravenous contrast. This CT exam was performed using one or more of the following dose reduction techniques: automated exposure control, adjustment of the mA and/or kV according to patient size, and/or use of iterative reconstruction technique. CONTRAST: IV 90mL Isovue-370 COMPARISON: No relevant prior studies available. FINDINGS: Heart is mildly enlarged. Diffuse coronary artery calcification. Moderately large hiatal hernia. The visualized pulmonary arteries demonstrate no evidence of embolism. There is scarring or atelectasis within the lingula and right middle lobe. No mediastinal or hilar lymphadenopathy Visualized osseous structures are unremarkable. Please refer to the cardiology report portion of this exam for information pertaining to the coronary arteries. CT/Limited Chest CT Cardiac Only IMPRESSION: Cardiomegaly. Moderate size hiatal hernia. No acute pulmonary abnormality. Electronically Signed: Freddy Murphy MD at 10:26 EST , CC: MARCO Ewing; MARINO Baltazar Enterprise Cloud Architect: Signed Normal [facility] Echo Complete W/ Contraston 08-11-2024 Echo Complete W/ Contrast [facility] Services [address] [place] [address] Echo Complete W/ Contrast 08/11/24 0923 MR#: [id number] Acct: [id number] Name: MARY MCLEAN Rep #: [id number] : 1940 83 From: Giacomo Brambila MD Attending Dr: Dr. Giacomo Brambila MD Status: REG CLI Ordering Dr: Giacomo Brambila MD Date: 08/11/24 Location: [facility] Sex: M C Admitted: Reason For Study: DYSPNEA Procedure This was a 2D Doppler, Color Flow transthoracic echocardiogram. The study was technically difficult. Contrast injection was performed. Exam performed in department. Left Ventricle Normal size and thickness. The left ventricular ejection fraction is 65 %. Normal diastology for age. Right Ventricle Normal right ventricle. Atria The left and right atria are normal. Mitral Valve Trivial mitral valve insufficiency. Tricuspid Valve Mild tricuspid valve insufficiency. Right ventricular systolic pressure estimated to be 45 mmHg. Aortic Valve Trisinus/trileaflet aortic valve. Aortic sclerosis, no stenosis. Pulmonic Valve The pulmonic valve is not well visualized. Trivial pulmonic valve insufficiency. Great Vessels Normal sized aortic root. Atherosclerotic aortic root. Pericardium/Pleural No pericardial effusion. Medication 22 gauge I.V. with prn adaptor inserted into left arm. Diluted definity 2ml given slow IV push to enhance endocardial definition. MMode/2D Measurements Calculations LVIDd: 4.3 cm IVSd: 0.98 cm LVOT diam: 2.0 cm LVIDs: 2.8 cm LVPWd: 0.97 cm RVDd: 4.7 cm FS: 35.1 % LVOT area: 3.0 cm2 asc Aorta Diam: 3.4 cm LAV(MOD-bp): 42.7 ml LVAd ap4: 31.5 cm2 LAV(MOD-bp) Indexed: 20.9 ml/m2 LVLd ap4: 8.6 cm LAV(MOD-sp2): 45.2 ml EDV(MOD-sp4): 97.8 ml LAV(MOD-sp4): 33.7 ml EDV(sp4-el): 97.8 ml LVAs ap4: 14.8 cm2 LVLs ap4: 6.3 cm ESV(MOD-sp4): 29.4 ml ESV(sp4-el): 29.5 ml EF(MOD-sp4): 69.9 % EF(sp4-el): 69.8 % LVAd ap2: 26.3 cm2 SV(MOD-sp4): 68.4 ml SV(MOD-sp2): 46.8 ml LVLd ap2: 8.2 cm EDV(MOD-sp2): 70.0 ml EDV(sp2-el): 71.6 ml LVAs ap2: 13.1 cm2 LVLs ap2: 6.2 cm ESV(MOD-sp2): 23.2 ml ESV(sp2-el): 23.7 ml EF(MOD-sp2): 66.9 % SV(sp4-el): 68.3 ml Ao sinus diam: 3.[address] Junction: 2.3 cm LA dimension(2D): 3.2 cm LA A4 area: 13.7 cm2 RA A4 area: 11.6 cm2 TAPSE: 2.6 cm Time Measurements MV dec time: 0.19 sec Doppler Measurements Calculations MV E max dion: 77.9 cm/sec Lat Peak E' Dion: 11.2 cm/sec Med Peak E' Dion: 8.7 cm/sec MV A max dion: 83.9 cm/sec E/E' lat: 7.0 E/E' med: 8.9 MV E/A: 0.93 MV dec slope: 411.9 cm/sec2 Ao V2 max: 207.3 cm/sec LV V1 max: 133.0 cm/sec Ao max P.2 mmHg LV V1 max P.1 mmHg Ao V2 mean: 140.1 cm/sec LV V1 mean P.7 mmHg Ao mean P.8 mmHg LV V1 mean: 92.3 cm/sec Ao V2 VTI: 41.4 cm LV V1 VTI: 27.7 cm AV (velocity ratio): 0.67 BISHNU(I,D): 2.0 cm2 BISHNU(V,D): 1.9 cm2 SV(LVOT): 83.5 ml PA V2 max: 122.1 cm/sec PI end-d dion: 90.0 cm/sec PA max PG (full): 4.0 mmHg TR max dion: 302.2 cm/sec TR max P.5 mmHg ECHO/Echo Complete W/ Contrast Interpretation Summary The left ventricular ejection fraction is 65 %. Mild tricuspid valve insufficiency. Right ventricular systolic pressure estimated to be 45 mmHg. Aortic sclerosis, no stenosis. Atherosclerotic aortic root __ Ordering Physician: Giacomo Brambila Referring Physician: Gaicomo Brambila MD Performed By: Vy Hudson, [facility] 08/11/24 1209 Date Giacomo Brambila MD CC: MELTER CLERK-C Kim Ewing; Dr. Giacomo Brambila MD Date Dictated: 08/11/24922 Date Transcribed: 08/11/241208 Enterprise Cloud Architect: Signed Normal [facility] Stress Reporton 08-11-2024 Stress Report [facility] Cardiovascular Services [address] [place] [address] MR#: [id number] Acct: [id number] Name: MARY MCLEAN Rep #: [id number] : 1940 83 From: Giacomo Brambila MD Primary Care: MARCO Hall Status: REG CLI Referring Dr: Giacomo Brambila MD Sex: M C Stress Test Report Date: 08/11/2024 Procedure: Exercise tolerance test/imaging study Indications: Dyspnea Consent: Per the patient Procedure: The patient exercised on a Yonas protocol for 5 minutes and 29 seconds achieving a peak heart rate of 109 bpm (80% predicted maximal heart rate) with a peak blood pressure 160/80 mmHg and a peak MET capacity of 7.0 METs. The baseline ECG demonstrated sinus rhythm with nonspecific ST changes. The peak exercise ECG demonstrated no diagnostic ischemic changes. Occasional PVCs noted pretest, frequent PVCs during exercise. The functional capacity was considered average for age. There was no complaints of chest pain during exercise or in recovery. However the patient did feel short of breath.. The examination was discontinued secondary to dyspnea and leg weakness. The patient was injected with 10.2 mCi of technetium 99m Cardiolite and subsequently rest SPECT Cardiolite nuclear imaging was obtained in the horizontal long, vertical long, and short axis views. Post-exercise, the patient was injected with 30.9 mCi of technetium 99m Cardiolite and subsequently stress SPECT Cardiolite nuclear imaging was obtained in the horizontal long, vertical long, and short axis views. A gated Cardiolite study at peak stress was obtained. Rest and stress SPECT Cardiolite nuclear imaging status post realignment, normalization, and attenuation correction, demonstrates the appearance of relative uniform tracer uptake and myocardial perfusion appearing within normal limits. There is end systolic thickening and brightening. The gated Cardiolite study demonstrates myocardial thickening and inward wall motion. The reported LVEF is 84%. Impression: 1. Suboptimal stress test with 80% of the maximal predicted heart rate achieved. Blunted blood pressure response to exercise. 2. Peak exercise ECG with no diagnostic ischemic changes 3. PVCs noted pretest. Frequent PVCs with exercise 4. Rest and stress SPECT Cardiolite nuclear imaging demonstrate relative uniform tracer uptake and myocardial perfusion appearing within normal limits. 5. The gated Cardiolite study reports an LVEF of 84%. 6. With blunted blood pressure response to exercise, recommend another modality such as coronary CT angio for further evaluation. This note was generated with [employer] software. It may contain incorrect words, spelling, and punctuation that were not noted in checking the note before signing. 08/11/24 1000 Date Giacomo Brambila MD CC: MARCO Ewing; Dr. Giacomo Brambila MD Date Dictated: 08/11/24954 Date Transcribed: 08/11/24954 Enterprise Cloud Architect: RAYNE Signed Normal [facility] Cardiology Visit Reporton Cardiology Visit Report [facility] [address] [place] [address] OFFICE VISIT Date of Service: 07/16/24 MR#: [id number] Acct: [id number] Name: MARY MCLEAN Rep #: [id number] : 1940 Provider: Dr. Giacomo Brambila MD Age/Sex: 83/M Location: [facility] Status: Signed HPI [facility] History of Present Illness Details: This pleasant gentleman who is mildly hard of hearing is being referred to us for evaluation of his shortness of breath with exertion. According to the patient, he has been getting short of breath with exertion for the last 2 years. It has not particularly worsened recently. Denies any orthopnea or PND. No ankle edema. Denies any chest pain or discomfort with exertion or at rest. According to the patient, if he walks about 70 feet, he gets short of breath and tired. Intake Vital Signs 06/10/24 15:01 07/16/24 08:26 Height 5 ft 10 in 5 ft 10 in Weight: 191 lb BMI 27.3 BP 144/75 H Blood Pressure Location Lt brachial Position Sitting Respiration 20 H Pulse 58 L Pulse Source NIBP Intake Visit Reasons: SOB (ROCIO) Break Out Worker Required: No Accompanied by: Is patient in pain?: No Allergies lisinopril Adverse Reaction (Severe, Verified 07/16/24 09:50) renal insuff losartan Adverse Reaction (Severe, Verified 07/16/24 09:50) renal insuff Medications ???Medication ???Instructions ???Recorded ???Confirmed ???Type aspirin 81 mg tablet,delayed 81 mg PO DAILY 09/23/18 07/16/24 History release (Adult Low Dose Aspirin) ferrous sulfate 325 mg (65 mg 325 mg PO DAILY 09/23/18 07/16/24 History iron) tablet (Feosol) atorvastatin 20 mg tablet (Lipitor) 20 mg PO DAILY #90 tabs 02/12/24 07/16/24 Rx carvedilol 3.125 mg tablet 3.125 mg PO BID #180 tabs 02/12/24 07/16/24 Rx diltiazem HCl 240 mg capsule,24 240 mg PO DAILY #90 caps 02/12/24 07/16/24 Rx hr,extended release metformin 500 mg tablet 500 mg PO DAILY #90 tabs 02/12/24 07/16/24 Rx cetirizine 10 mg capsule (Zyrtec) 10 mg PO DAILY 06/29/24 07/16/24 History levothyroxine 112 mcg tablet 112 mcg PO DAILY #90 tabs 06/30/24 07/16/24 Rx Have you fallen in the past year?: No PFSH Medical History Anemia Chronic renal insufficiency, stage III (moderate) Hepatitis A [place] (hard of hearing) Hyperlipidemia Hypertension 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 Sinus bradycardia Family History Father Alzheimer's disease Hypertension Diabetes Mother CAD (coronary artery disease) Brother CAD (coronary artery disease) Diabetes Social History Smoking Status: Former smoker ROS Const Const: Positive for fatigue and weakness; Negative for headache(s) or weight gain ENT ENT: Negative for headache(s), dizziness, Nosebleed/epistaxis or balance problems Cardio Chest Pain: No Palpitations: No Edema: None Muscle aches with walking: None Resp Respiratory: Positive for SOB with activity (with light activity); Negative for SOB at rest or SOB orthopnea SOB lying down GI GI: Negative nausea, vomiting or heartburn Musc Musc: Negative for muscle aches/ myalgia, muscle weakness, joint pain or balance problems Neuro Neuro: Positive for weakness; Negative for dizziness, lightheadedness, near syncope, syncope or headache(s) Endo Endo: Positive for fatigue Cardiology Exam Const Appearance: comfortable and no acute distress Nutritional Appearance: well nourished Neck Neck: no JVD Carotids: Negative bruit Chest Auscultation: Bilateral: Clear to Auscultation Cardio Rate: regular rate Rhythm: regular rhythm Heart sounds: S1 normal and S2 normal Neuro General: patient alert, patient awake and patient oriented x3 Extremities Lower Extremity Edema: None: Bilateral Assessment and Plan Assessment and Plan (1) SOB (shortness of breath): Status: Chronic Plan: Check exercise stress Myoview. Check echocardiogram. (2) Hypertension: Status: Chronic Qualifiers: Hypertension type: essential hypertension Qualified Code(s): I10 - Essential (primary) hypertension Plan: Carvedilol and diltiazem. (3) PVCs (premature ventricular contractions): Status: Chronic Plan: History of PVCs. On carvedilol and diltiazem. (4) Dyslipidemia: Status: Chronic Plan: Atorvastatin. (5) Diabetes: Status: Chronic Plan: Metformin. Orders: Orders 12 Lead EKG performed by [facility] Today R06.02 - Shortness of breath Coding Level of Care Code Off vis,new,level 4 Diagnoses SOB (shortness of breath) R06.02 Essential hypertension I10 Hypertension type: essential hypertension PVCs (premature ventricular contractions) I49.3 Dyslipidemia E (more content not included)... Normal [facility] Comprehensive Metabolic Prof ildayne 06-10-2024 Albumin [Mass/Vol] 3.2 g/dL Normal 3.2-5.0 [facility] Comment on above: Performed By: #### L 501.9985, L500.4050, L501.9520, L501.9940 #### [facility] [address] [place], [address] Albumin/Globulin [Mass ratio] 0.7 {ratio} Low 0.9-2.4 [facility] Comment on above: Performed By: #### L 501.9985, L500.4050, L501.9520, L501.9940 #### [facility] [address] [place], [address] ALK P 104 U/L Normal 45-117 [facility] Comment on above: Performed By: #### L 501.9985, L500.4050, L501.9520, L501.9940 #### [facility] [address] [place], [address] ALT [Catalytic activity/Vol] 27 U/L Normal 16-61 [facility] Comment on above: Performed By: #### L 501.9985, L500.4050, L501.9520, L501.9940 #### [facility] [address] [place], [address] AST [Catalytic activity/Vol] 22 U/L Normal 15-37 [facility] Comment on above: Performed By: #### L 501.9985, L500.4050, L501.9520, L501.9940 #### [facility] [address] [place], [address] Bilirubin [Mass/Vol] 0.40 mg/dL Normal 0.20-1.00 [facility] Comment on above: Result Comment: For patients on eltrombopag therapy, use of Dimension [place] TBIL is not recommended. Performed By: #### L 501.9985, L500.4050, L501.9520, L501.9940 #### [facility] [address] [place], [address] BUN/CRE 11.3 RATIO Normal 10-20 [facility] Comment on above: Performed By: #### L 501.9985, L500.4050, L501.9520, L501.9940 #### [facility] [address] [place], [address] CA,Total 9.1 mg/dL Normal 8.5-10.1 [facility] Comment on above: Performed By: #### L 501.9985, L500.4050, L501.9520, L501.9940 #### [facility] [address] [place], [address] Chloride [Moles/Vol] 103 mmol/L Normal 98-107 [facility] Comment on above: Performed By: #### L 501.9985, L500.4050, L501.9520, L501.9940 #### [facility] [address] [place], [address] CO2 [Moles/Vol] 28.0 mmol/L Normal 21.0-32.0 [facility] Comment on above: Performed By: #### L 501.9985, L500.4050, L501.9520, L501.9940 #### [facility] [address] [place], [address] Creatinine [Mass/Vol] 1.50 mg/dL High 0.70-1.30 [facility] Comment on above: Result Comment: The validity of the calculated GFR GFRAA in patients over 70 years has not been determined. Clinical correlation is essential. Performed By: #### L 501.9985, L500.4050, L501.9520, L501.9940 #### [facility] [address] [place], [address] EST GFR - AA 57 mL/min Low >60 [facility] Comment on above: Result Comment: Afri can Ivorian GFR Calc Performed By: #### L 501.9985, L500.4050, L501.9520, L501.9940 #### [facility] [address] [place], [address] GAP 7 Normal 5-15 [facility] Comment on above: Performed By: #### L 501.9985, L500.4050, L501.9520, L501.9940 #### [facility] [address] [place], [address] GFR/1.73 sq M.predicted among non-blacks MDRD (S/P/Bld) [Vol rate/Area] 47 mL/min/{1.73_m2} Low >[address] [facility] Comment on above: Result Comment: Non- GFR Calc Performed By: #### L 501.9985, L500.4050, L501.9520, L501.9940 #### [facility] [address] [place], [address] Globulin (S) [Mass/Vol] 4.3 g/dL High 2.2-4.2 [facility] Comment on above: Performed By: #### L 501.9985, L500.4050, L501.9520, L501.9940 #### [facility] [address] [place], [address] Glucose [Mass/Vol] 246 mg/dL High 74-106 [facility] Comment on above: Result Comment: Gluc ose result greater than or equal to 200 mg/dL suggests DIABETES MELLITUS per A.D.A. criteria. Performed By: #### L 501.9985, L500.4050, L501.9520, L501.9940 #### [facility] [address] [place], [address] Potassium [Moles/Vol] 5.3 mmol/L High 3.5-5.1 [facility] Comment on above: Performed By: #### L 501.9985, L500.4050, L501.9520, L501.9940 #### [facility] [address] [place], [address] Sodium [Moles/Vol] 138 mmol/L Normal 136-145 [facility] Comment on above: Performed By: #### L 501.9985, L500.4050, L501.9520, L501.9940 #### [facility] [address] [place], [address] T PROT 7.5 g/dL Normal 6.4-8.2 [facility] Comment on above: Performed By: #### L 501.9985, L500.4050, L501.9520, L501.9940 #### [facility] [address] [place], [address] Urea nitrogen [Mass/Vol] 17 mg/dL Normal 7-18 [facility] Comment on above: Performed By: #### L 501.9985, L500.4050, L501.9520, L501.9940 #### [facility] [address] [place], [address] Hemoglobin A1con 06-10-2024 HbA1c (Bld) [Mass fraction] 6.6 % High 3.8-5.6 [facility] Comment on above: Result Comment: Norm al < 5.7 % Prediabetic 5.7 - 6.4 % Diabetic >or= 6.5 % Please note range changes. Performed By: #### L 501.9985, L500.4050, L501.9520, L501.9940 ####[facility] [id number] [place], [address] PSA,Total- [employer] 082 PSA, DIAGNOSTIC 4.16 ng/mL High 0.0-4.0 [facility] Comment on above: Result Comment: This test was performed using the TPSA assay method for the [employer] chemistry system. Values obtained with different assay methods cannot be used interchangably. When changing PSA assays in the course of monitoring a patient, additional sequential testing should be carried out to confirm baseline values. Performed By: #### L 501.9985, L500.4050, L501.9520, L501.9940 ####[facility] [id number] [place], [place], [id number] Thyroid Stim Hormone (TSH)on 06-10-2024 TSH 1.540 uIU/mL Normal 0.358-3.740 [facility] Comment on above: Performed By: #### L 501.9985, L500.4050, L501.9520, L501.9940 ####[facility] [address] [place], [place], [id number] Absolute lymphocyte countOrd ered By: Kim Ewing on 02-12-2024 Lymphocytes Auto (Unsp spec) [#/Vol] 2.10 10*3/uL 0.83-4.51 [facility] Automated lymphocyte count a s percentage of total leukocytesOrdered By: Kim Ewing on 02-12-2024 Lymphocytes/100 WBC Auto (Unsp spec) 19.4 % 19-41 [facility] Basophil percentageOrdered B y: Kim Ewing on 02-12-2024 Basophil percentage 4.52 ng/mL 0.0-4.0 [facility] Comment on above: This test was perfor med using the TPSA assay method for the[employer] chemistry system. Values obtained with differentassay methods cannot be used interchangably.When changing PSA assays in the course of monitoring apatient, additional sequential testing should be carriedout to confirm baseline values. Basophils/100 WBC (Bld) 0.9 % 0-1 [facility] Bilirubin [Mass/Vol] 0.60 mg/dL 0.20-1.00 [facility] [facility] Comment on above: For patients on eltr ombopag therapy, use of Dimension [place] TBIL is not recommended. Chloride [Moles/Vol] 106 mmol/L 98-107 [facility] Cholesterol [Mass/Vol] 158 mg/dL <[address] [facility] Comment on above: <200 mg/dL Desirable 200-240 mg/dL Borderline >240 mg/dL High Risk Eosinophils/100 WBC (Bld) 2.7 % 0-5 [facility] Glucose [Mass/Vol] 153 mg/dL 74-106 [facility] Comment on above: Fasting Glucose resu lt greater than or equal to 126 mg/dL suggests DIABETES MELLITUS per A.D.A. criteria. Hemoglobin (Bld) [Mass/Vol] 13.8 g/dL 13.0-16.5 [facility] Monocytes/100 WBC (Bld) 8.8 % 0-10 [facility] Neutrophils (Bld) [#/Vol] 7.3 10*3/uL 2.0-7.7 [facility] Neutrophils/100 WBC (Bld) 67.6 % 47-70 [facility] Potassium [Moles/Vol] 5.9 mmol/L 3.5-5.1 [facility] Comment on above: Moderate Hemolysis, Result may be falsely increased. Protein [Mass/Vol] 7.8 g/dL 6.4-8.2 [facility] Sodium [Moles/Vol] 137 mmol/L 136-145 [facility] Triglyceride [Mass/Vol] 140 mg/dL <199 [facility] Comment on above: The drugs N-Acetylcy steine and Metamizole may falsely depress this assay.Serum Triglycerides Reference Interval Normal <150 mg/dL Borderline high 150 - 199 mg/dL High 200 - 499 mg/dL Very High > or = 500 mg/dL WBC (Bld) [#/Vol] 10.9 10*3/uL 4.4-11.0 [facility] Determination of erythrocyte mean corpuscular volume (MCV)Ordered By: Kim Ewing on 02-12-2024 MCV (RBC) [Entitic vol] 95.8 fL 80-94 [facility] Erythrocyte distribution wid th ratioOrdered By: Kim Ewing on 02-12-2024 Erythrocyte distribution width (RBC) [Ratio] 14.3 % 11.6-14.6 [facility] Erythrocyte distribution wid th standard deviationOrdered By: Kim Ewing on 02-12-2024 Erythrocyte distribution width (RBC) [Entitic vol] 50.3 fL 35.1-43.9 [facility] Hematocrit Auto (Bld) [Volum e fraction]Ordered By: Kim Ewing on 02-12-2024 Hematocrit (Bld) [Volume fraction] 43.7 % 40-54 [facility] Immature granulocytes/100 WB C Auto (Bld)Ordered By: Kim Ewing on 02-12-2024 Immature granulocytes/100 WBC (Bld) 0.600 % 0.0-0.9 [facility] Comment on above: IG% - Immature Granu locytes (promyelocytes, myelocytes and metamyelocytes) > 1% indicates that a LEFT SHIFT is Present. Laboratory - Chemistry and C hemistry - challengeOrdered By: Kim Ewing on 02-12-2024 Albumin/Globulin [Mass ratio] 0.7 {ratio} 0.9-2.4 [facility] ALP [Catalytic activity/Vol] 112 U/L 45-117 [facility] ALT [Catalytic activity/Vol] 27 U/L 16-61 [facility] Cholesterol in HDL [Mass/Vol] 58 mg/dL >40 [facility] Comment on above: The drugs N-Acetylcy steine and Metamizole may falsely depress this assay. Reference Range HDL <40 mg/dL Low HDL Cholesterol HDL >or= 60 mg/dL High HDL Cholesterol Cholesterol in LDL [Mass/Vol] 72 mg/dL 0-130 [facility] CO2 [Moles/Vol] 27.0 mmol/L 21.0-32.0 [facility] Globulin (S) [Mass/Vol] 4.7 g/dL 2.2-4.2 [facility] Urea nitrogen/Creatinine [Mass ratio] 11.3 mg/mg 10-20 [facility] Laboratory - Hematology and Cell countsOrdered By: Kim Ewing on 02-12-2024 MCH (RBC) [Entitic mass] 30.3 pg 27.0-32.0 [facility] MCHC (RBC) [Mass/Vol] 31.6 g/dL 32-36 [facility] Nucleated RBC/100 WBC (Bld) [Ratio] 0 % 0-5 [facility] Platelet mean volume (Bld) [Entitic vol] 12.3 fL 6.2-12.0 [facility] Platelets (Bld) [#/Vol] 357 10*3/uL 150-450 [facility] No Panel InformationOrdered By: Kim Ewing on 02-12-2024 Estimated GFR (MDRD) Amer 53 mL/min >60 [facility] Comment on above: GFR Calc Estimated GFR (MDRD) Non-Af Amer 44 mL/min >60 [facility] Comment on above: Non- GFR Calc VLDL Cholesterol 28 mg/dL 5-40 [facility] RBC Auto (Bld) [#/Vol]Ordere d By: Kim Ewing on 02-12-2024 RBC (Bld) [#/Vol] 4.56 10*6/uL 4.6-6.2 [facility] Serum or plasma calcium purvi urement (mass/volume)Ordered By: Kim Ewing on 02-12-2024 Calcium [Mass/Vol] 9.2 mg/dL 8.5-10.1 [facility] Serum or plasma creatinine m easurement (mass/volume)Ordered By: Kim Ewing on 02-12-2024 Creatinine [Mass/Vol] 1.59 mg/dL 0.70-1.30 [facility] Comment on above: The validity of the calculated GFR & GFRAA in patients over 70 years has not been determined. Clinical correlation is essential. Serum or plasma urea nitroge n measurement (mass/volume)Ordered By: Kim Ewing on 02-12-2024 Urea nitrogen [Mass/Vol] 18 mg/dL 7-18 [facility] Thin prep Papanicolaou smear with manual screeningOrdered By: Kim Ewing on 02-12-2024 Thin prep Papanicolaou smear with manual screening 3.1 g/dL 3.2-5.0 [facility] Thin prep Papanicolaou smear with manual screening 29 U/L 15-37 [facility] Comment on above: Moderate Hemolysis, Result may be falsely increased. Thin prep Papanicolaou smear with manual screening 4 5-15 [facility] Whole blood hemoglobin A1c/t otal hemoglobin ratio (mass fraction)Ordered By: Kim Ewing on 02-12-2024 HbA1c (Bld) [Mass fraction] 7.2 % 3.8-5.6 [facility] Comment on above: Normal < 5.7 % Predi abetic 5.7 - 6.4 % Diabetic >or= 6.5 % Please note range changes. Basophil percentageOrdered B y: Kim Ewing on 09-11-2023 Bilirubin [Mass/Vol] 0.30 mg/dL 0.20-1.00 [facility] Comment on above: For patients on eltr ombopag therapy, use of Dimension [place] TBIL is not recommended. Chloride [Moles/Vol] 104 mmol/L 98-107 [facility] Glucose [Mass/Vol] 196 mg/dL 74-106 [facility] Comment on above: Fasting Glucose resu lt greater than or equal to 126 mg/dL suggests DIABETES MELLITUS per A.D.A. criteria. Potassium [Moles/Vol] 4.2 mmol/L 3.5-5.1 [facility] Protein [Mass/Vol] 7.7 g/dL 6.4-8.2 [facility] Sodium [Moles/Vol] 136 mmol/L 136-145 [facility] Laboratory - Chemistry and C hemistry - challengeOrdered By: Kim Ewing on 09-11-2023 ALP [Catalytic activity/Vol] 109 U/L 45-117 [facility] ALT [Catalytic activity/Vol] 27 U/L 16-61 [facility] CO2 [Moles/Vol] 27.0 mmol/L 21.0-32.0 [facility] Globulin (S) [Mass/Vol] 4.4 g/dL 2.2-4.2 [facility] Urea nitrogen/Creatinine [Mass ratio] 14.3 mg/mg 10-20 [facility] No Panel InformationOrdered By: Kim Ewing on 09-11-2023 Estimated GFR (MDRD) Amer 59 mL/min >60 [facility] Comment on above: GFR Calc Estimated GFR (MDRD) Non-Af Amer 48 mL/min >60 [facility] Comment on above: Non- GFR Calc Thyroid Stimulating Hormone (TSH) 1.87 uIU/mL 0.358-3.74 [facility] Serum or plasma albumin purvi urement (mass/volume)Ordered By: Kim Ewing on 09-11-2023 Albumin [Mass/Vol] 3.3 g/dL 3.2-5.0 [facility] Serum or plasma albumin/glob ulin mass ratioOrdered By: Kim Ewing on 09-11-2023 Albumin/Globulin [Mass ratio] 0.8 {ratio} 0.9-2.4 [facility] Serum or plasma calcium purvi urement (mass/volume)Ordered By: Kim Ewing on 09-11-2023 Calcium [Mass/Vol] 9.2 mg/dL 8.5-10.1 [facility] Serum or plasma creatinine m easurement (mass/volume)Ordered By: Kim Ewing on 09-11-2023 Creatinine [Mass/Vol] 1.47 mg/dL 0.70-1.30 [facility] Comment on above: The validity of the calculated GFR & GFRAA in patients over 70 years has not been determined. Clinical correlation is essential. Serum or plasma urea nitroge n measurement (mass/volume)Ordered By: Kim Ewing on 09-11-2023 Urea nitrogen [Mass/Vol] 21 mg/dL 7-18 [facility] Thin prep Papanicolaou smear with manual screeningOrdered By: Kim Ewing on 09-11-2023 Thin prep Papanicolaou smear with manual screening 17 U/L 15-37 [facility] Thin prep Papanicolaou smear with manual screening 5 5-15 [facility] Basophil percentageOrdered B y: Kim Ewing on 09-03-2023 Bilirubin [Mass/Vol] 0.40 mg/dL 0.20-1.00 [facility] Comment on above: For patients on eltr ombopag therapy, use of Dimension [place] TBIL is not recommended. Chloride [Moles/Vol] 104 mmol/L 98-107 [facility] Glucose [Mass/Vol] 195 mg/dL 74-106 [facility] Comment on above: Fasting Glucose resu lt greater than or equal to 126 mg/dL suggests DIABETES MELLITUS per A.D.A. criteria. Potassium [Moles/Vol] 5.6 mmol/L 3.5-5.1 [facility] Protein [Mass/Vol] 7.4 g/dL 6.4-8.2 [facility] Sodium [Moles/Vol] 140 mmol/L 136-145 [facility] Laboratory - Chemistry and C hemistry - challengeOrdered By: Kim Ewing on 09-03-2023 ALP [Catalytic activity/Vol] 106 U/L 45-117 [facility] ALT [Catalytic activity/Vol] 21 U/L 16-61 [facility] CO2 [Moles/Vol] 32.0 mmol/L 21.0-32.0 [facility] Globulin (S) [Mass/Vol] 4.1 g/dL 2.2-4.2 [facility] Urea nitrogen/Creatinine [Mass ratio] 11.5 mg/mg 10-20 [facility] No Panel InformationOrdered By: Kim Ewing on 09-03-2023 Estimated GFR (MDRD) Amer 54 mL/min >60 [facility] Comment on above: GFR Calc Estimated GFR (MDRD) Non-Af Amer 45 mL/min >60 [facility] Comment on above: Non- GFR Calc Prostate Specific Antigen Total 3.04 ng/mL 0.0-4.0 [facility] Comment on above: This test was perfor med using the TPSA assay method [facility]. Values obtained with differentassay methods cannot be used interchangably.When changing PSA assays in the course of monitoring apatient, additional sequential testing should be carriedout to confirm baseline values. Serum or plasma albumin purvi urement (mass/volume)Ordered By: Kim Ewing on 09-03-2023 Albumin [Mass/Vol] 3.3 g/dL 3.2-5.0 [facility] Serum or plasma albumin/glob ulin mass ratioOrdered By: Kim Ewing on 09-03-2023 Albumin/Globulin [Mass ratio] 0.8 {ratio} 0.9-2.4 [facility] Serum or plasma calcium purvi urement (mass/volume)Ordered By: Kim Ewing on 09-03-2023 Calcium [Mass/Vol] 9.2 mg/dL 8.5-10.1 [facility] Serum or plasma creatinine m easurement (mass/volume)Ordered By: Kim Ewing on 09-03-2023 Creatinine [Mass/Vol] 1.57 mg/dL 0.70-1.30 [facility] Comment on above: The validity of the calculated GFR & GFRAA in patients over 70 years has not been determined. Clinical correlation is essential. Serum or plasma urea nitroge n measurement (mass/volume)Ordered By: Kim Ewing on 09-03-2023 Urea nitrogen [Mass/Vol] 18 mg/dL 7-18 [facility] Thin prep Papanicolaou smear with manual screeningOrdered By: Kim Ewing on 09-03-2023 Thin prep Papanicolaou smear with manual screening 17 U/L 15- [facility] Thin prep Papanicolaou smear with manual screening 4 5-15 [facility] Whole blood hemoglobin A1c/t otal hemoglobin ratio (mass fraction)Ordered By: Kim Ewing on 09-03-2023 HbA1c (Bld) [Mass fraction] 6.8 % 3.8-5.6 [facility] Comment on above: Normal < 5.7 % Predi abetic 5.7 - 6.4 % Diabetic >or= 6.5 % Please note range changes. Absolute lymphocyte countOrd ered By: Kim Ewing on 06-10-2023 Lymphocytes Auto (Unsp spec) [#/Vol] 2.17 10*3/uL 0.83-4.51 [facility] Basophil percentageOrdered B y: Kim Ewing on 06-10-2023 Basophils/100 WBC (Bld) 0.7 % 0-1 [facility] Bilirubin [Mass/Vol] 0.30 mg/dL 0.20-1.00 [facility] Comment on above: For patients on eltr ombopag therapy, use of Dimension [place] TBIL is not recommended. Chloride [Moles/Vol] 105 mmol/L 98-107 [facility] Cholesterol [Mass/Vol] 165 mg/dL <[address] [facility] Comment on above: <200 mg/dL Desirable 200-240 mg/dL Borderline >240 mg/dL High Risk Eosinophils/100 WBC (Bld) 3.4 % 0-5 [facility] Glucose [Mass/Vol] 126 mg/dL 74-106 [facility] Comment on above: Fasting Glucose resu lt greater than or equal to 126 mg/dL suggests DIABETES MELLITUS per A.D.A. criteria. Neutrophils (Bld) [#/Vol] 6.0 10*3/uL 2.0-7.7 [facility] Neutrophils/100 WBC (Bld) 63.0 % 47-70 [facility] Potassium [Moles/Vol] 4.7 mmol/L 3.5-5.1 [facility] Protein [Mass/Vol] 7.8 g/dL 6.4-8.2 [facility] Sodium [Moles/Vol] 139 mmol/L 136-145 [facility] Triglyceride [Mass/Vol] 270 mg/dL <199 [facility] Comment on above: The drugs N-Acetylcy steine and Metamizole may falsely depress this assay.Serum Triglycerides Reference Interval Normal <150 mg/dL Borderline high 150 - 199 mg/dL High 200 - 499 mg/dL Very High > or = 500 mg/dL WBC (Bld) [#/Vol] 9.6 10*3/uL 4.4-11.0 [facility] Blood erythrocytes count (nu mber/volume)Ordered By: Kim Ewing on 06-10-2023 RBC (Bld) [#/Vol] 4.66 10*6/uL 4.6-6.2 [facility] Blood hemoglobin measurement (mass/volume)Ordered By: Kim Ewing on 06-10-2023 Hemoglobin (Bld) [Mass/Vol] 14.5 g/dL 13.0-16.5 [facility] Blood lymphocytes/100 leukoc ytesOrdered By: Kim Ewing on 06-10-2023 Lymphocytes/100 WBC (Bld) 22.7 % 19-41 [facility] Blood monocytes/100 leukocyt esOrdered By: Kim Ewing on 06-10-2023 Monocytes/100 WBC (Bld) 9.6 % 0-10 [facility] Blood platelet mean volumeOr dered By: Kim Ewing on 06-10-2023 Platelet mean volume (Bld) [Entitic vol] 12.4 fL 6.2-12.0 [facility] Determination of erythrocyte mean corpuscular volume (MCV)Ordered By: Kim Ewing on 06-10-2023 MCV (RBC) [Entitic vol] 98.1 fL 80-94 [facility] Hematocrit Auto (Bld) [Volum e fraction]Ordered By: Kim Ewing on 06-10-2023 Hematocrit (Bld) [Volume fraction] 45.7 % 40-54 [facility] Laboratory - Chemistry and C hemistry - challengeOrdered By: Kim Ewing on 06-10-2023 ALP [Catalytic activity/Vol] 107 U/L 45-117 [facility] ALT [Catalytic activity/Vol] 33 U/L 16-61 [facility] CO2 [Moles/Vol] 28.0 mmol/L 21.0-32.0 [facility] Globulin (S) [Mass/Vol] 4.6 g/dL 2.2-4.2 [facility] Urea nitrogen/Creatinine [Mass ratio] 13.4 mg/mg 10-20 [facility] Laboratory - Hematology and Cell countsOrdered By: Kim Ewing on 06-10-2023 Erythrocyte distribution width (RBC) [Entitic vol] 51.1 fL 35.1-43.9 [facility] Erythrocyte distribution width (RBC) [Ratio] 14.2 % 11.6-14.6 [facility] Immature granulocytes/100 WBC (Bld) 0.600 % 0.0-0.9 [facility] Comment on above: IG% - Immature Granu locytes (promyelocytes, myelocytes and metamyelocytes) > 1% indicates that a LEFT SHIFT is Present. MCH (RBC) [Entitic mass] 31.1 pg 27.0-32.0 [facility] Nucleated RBC/100 WBC (Bld) [Ratio] 0 % 0-5 [facility] MCHC Auto (RBC) [Mass/Vol]Or dered By: Kim Ewing on 06-10-2023 MCHC (RBC) [Mass/Vol] 31.7 g/dL 32-36 [facility] No Panel InformationOrdered By: Kim Ewing on 06-10-2023 Estimated GFR (MDRD) Amer 58 mL/min >60 [facility] Comment on above: GFR Calc Estimated GFR (MDRD) Non-Af Amer 48 mL/min >60 [facility] Comment on above: Non- GFR Calc Prostate Specific Antigen Screen 4.43 ng/mL 0.00-4.00 [facility] Comment on above: This test was perfor med using the TPSA assay method for the[employer] chemistry system. Values obtained with differentassay methods cannot be used interchangably.When changing PSA assays in the course of monitoring apatient, additional sequential testing should be carriedout to confirm baseline values. Thyroid Stimulating Hormone (TSH) 3.52 uIU/mL 0.358-3.74 [facility] Platelets bldOrdered By: Gurmeet Ewing on 06-10-2023 Platelets (Bld) [#/Vol] 352 10*3/uL 150-450 [facility] Serum or plasma albumin purvi urement (mass/volume)Ordered By: Kim Ewing on 06-10-2023 Albumin [Mass/Vol] 3.2 g/dL 3.2-5.0 [facility] Serum or plasma albumin/glob ulin mass ratioOrdered By: Kim Ewing on 06-10-2023 Albumin/Globulin [Mass ratio] 0.7 {ratio} 0.9-2.4 [facility] Serum or plasma calcium purvi urement (mass/volume)Ordered By: Kim Ewing on 06-10-2023 Calcium [Mass/Vol] 8.8 mg/dL 8.5-10.1 [facility] Serum or plasma cholesterol in HDL measurement (mass/volume)Ordered By: Kim Ewing on 06-10-2023 Cholesterol in HDL [Mass/Vol] 48 mg/dL >40 [facility] Comment on above: The drugs N-Acetylcy steine and Metamizole may falsely depress this assay. Reference Range HDL <40 mg/dL Low HDL Cholesterol HDL >or= 60 mg/dL High HDL Cholesterol Serum or plasma cholesterol in VLDL measurement (mass/volume)Ordered By: Kim Ewing on 06-10-2023 Cholesterol in VLDL [Mass/Vol] 54 mg/dL 5-40 [facility] Serum or plasma creatinine m easurement (mass/volume)Ordered By: Kim Ewing on 06-10-2023 Creatinine [Mass/Vol] 1.49 mg/dL 0.70-1.30 [facility] Comment on above: The validity of the calculated GFR & GFRAA in patients over 70 years has not been determined. Clinical correlation is essential. Serum or plasma low density lipoprotein (LDL) cholesterol measurement (mass/volume)Ordered By: Kim Ewing on 06-10-2023 Cholesterol in LDL [Mass/Vol] 63 mg/dL 0-130 [facility] Serum or plasma urea nitroge n measurement (mass/volume)Ordered By: Kim Ewing on 06-10-2023 Urea nitrogen [Mass/Vol] 20 mg/dL 7-18 [facility] Thin prep Papanicolaou smear with manual screeningOrdered By: Kim Ewing on 06-10-2023 Thin prep Papanicolaou smear with manual screening 25 U/L 15- [facility] Thin prep Papanicolaou smear with manual screening 6 5-15 [facility] Absolute lymphocyte counton 03-27-2022 Lymphocytes Auto (Unsp spec) [#/Vol] 2.28 10*3/uL 0.83-4.51 [facility] Work Phone: Basophil percentageon 2021 Basophils/100 WBC (Bld) 0.6 % 0-1 [facility] Work Phone: Bilirubin [Mass/Vol] 0.30 mg/dL 0.20-1.00 [facility] Work Phone: Comment on above: For patients on eltr ombopag therapy, use of Dimension [place] TBIL is not recommended. Chloride [Moles/Vol] 105 mmol/L 98-107 [facility] Work Phone: Cholesterol [Mass/Vol] 155 mg/dL <[address] [facility] Work Phone: Comment on above: <200 mg/dL Desirable 200-240 mg/dL Borderline >240 mg/dL High Risk Eosinophils/100 WBC (Bld) 2.6 % 0-5 [facility] Work Phone: Glucose [Mass/Vol] 115 mg/dL 74-106 [facility] Work Phone: Comment on above: Fasting Glucose resu lt from 100 to 125 mg/dL suggests IMPAIRED HOMEOSTASIS per A.D.A. criteria. Neutrophils (Bld) [#/Vol] 6.9 10*3/uL 2.0-7.7 [facility] Work Phone: Neutrophils/100 WBC (Bld) 65.6 % 47-70 [facility] Work Phone: Potassium [Moles/Vol] 5.7 mmol/L 3.5-5.1 [facility] Work Phone: Protein [Mass/Vol] 8.0 g/dL 6.4-8.2 [facility] Work Phone: Sodium [Moles/Vol] 139 mmol/L 136-145 [facility] Work Phone: Triglyceride [Mass/Vol] 171 mg/dL [facility] Work Phone: Comment on above: The drugs N-Acetylcy steine and Metamizole may falsely depress this assay.Serum Triglycerides Reference Interval Normal <150 mg/dL Borderline high 150 - 199 mg/dL High 200 - 499 mg/dL Very High > or = 500 mg/dL WBC (Bld) [#/Vol] 10.4 10*3/uL 4.4-11.0 [facility] Work Phone: Blood erythrocytes count (nu mber/volume)on 03-27-2022 RBC (Bld) [#/Vol] 4.74 10*6/uL 4.6-6.2 [facility] Work Phone: Blood hemoglobin measurement (mass/volume)on 03-27-2022 Hemoglobin (Bld) [Mass/Vol] 14.2 g/dL 13.0-16.5 [facility] Work Phone: Blood lymphocytes/100 leukoc yteson 03-27-2022 Lymphocytes/100 WBC (Bld) 21.9 % 19-41 [facility] Work Phone: Blood monocytes/100 leukocyt eson 03-27-2022 Monocytes/100 WBC (Bld) 8.7 % 0-10 [facility] Work Phone: Blood platelet mean volumeon 03-27-2022 Platelet mean volume (Bld) [Entitic vol] 12.3 fL 6.2-12.0 [facility] Work Phone: Determination of erythrocyte mean corpuscular volume (MCV)on 03-27-2022 MCV (RBC) [Entitic vol] 96.4 fL 80-94 [facility] Work Phone: Hematocrit Auto (Bld) [Volum e fraction]on 03-27-2022 Hematocrit (Bld) [Volume fraction] 45.7 % 40-54 [facility] Work Phone: Laboratory - Chemistry and C hemistry - challengeon 03-27-2022 ALP [Catalytic activity/Vol] 115 U/L 45-117 [facility] Work Phone: ALT [Catalytic activity/Vol] 26 U/L 16-61 [facility] Work Phone: CO2 [Moles/Vol] 29.0 mmol/L 21.0-32.0 [facility] Work Phone: Globulin (S) [Mass/Vol] 4.5 g/dL 2.2-4.2 [facility] Work Phone: Urea nitrogen/Creatinine [Mass ratio] 13.3 mg/mg 10-20 [facility] Work Phone: Laboratory - Hematology and Cell countson 03-27-2022 Erythrocyte distribution width (RBC) [Entitic vol] 51.2 fL 35.1-43.9 [facility] Work Phone: Erythrocyte distribution width (RBC) [Ratio] 14.2 % 11.6-14.6 [facility] Work Phone: Immature granulocytes/100 WBC (Bld) 0.600 % 0.0-0.9 [facility] Work Phone: Comment on above: IG% - Immature Granu locytes (promyelocytes, myelocytes and metamyelocytes) > 1% indicates that a LEFT SHIFT is Present. MCH (RBC) [Entitic mass] 30.0 pg 27.0-32.0 [facility] Work Phone: Nucleated RBC/100 WBC (Bld) [Ratio] 0 % 0-5 [facility] Work Phone: MCHC Auto (RBC) [Mass/Vol]on 03-27-2022 MCHC (RBC) [Mass/Vol] 31.1 g/dL 32-36 [facility] Work Phone: No Panel Informationon 03-27 Estimated GFR (MDRD) Amer 61 mL/min >60 [facility] Work Phone: Comment on above: GFR Calc Estimated GFR (MDRD) Non-Af Amer 50 mL/min >60 [facility] Work Phone: Comment on above: Non- GFR Calc Prostate Specific Antigen Screen 2.37 ng/mL 0.00-4.00 [facility] Work Phone: Comment on above: This test was perfor med using the TPSA assay method [facility]. Values obtained with differentassay methods cannot be used interchangably.When changing PSA assays in the course of monitoring apatient, additional sequential testing should be carriedout to confirm baseline values. Thyroid Stimulating Hormone (TSH) 2.95 uIU/mL 0.358-3.74 [facility] Work Phone: Platelets bldon 03-27-2022 Platelets (Bld) [#/Vol] 352 10*3/uL 150-450 [facility] Work Phone: Serum or plasma albumin purvi urement (mass/volume)on 03-27-2022 Albumin [Mass/Vol] 3.5 g/dL 3.2-5.0 [facility] Work Phone: Serum or plasma albumin/glob ulin mass ratioon 03-27-2022 Albumin/Globulin [Mass ratio] 0.8 {ratio} 0.9-2.4 [facility] Work Phone: Serum or plasma calcium purvi urement (mass/volume)on 03-27-2022 Calcium [Mass/Vol] 9.3 mg/dL 8.5-10.1 [facility] Work Phone: Serum or plasma cholesterol in HDL measurement (mass/volume)on 03-27-2022 Cholesterol in HDL [Mass/Vol] 53 mg/dL [facility] Work Phone: Comment on above: The drugs N-Acetylcy steine and Metamizole may falsely depress this assay. Reference Range HDL <40 mg/dL Low HDL Cholesterol HDL >or= 60 mg/dL High HDL Cholesterol Serum or plasma cholesterol in VLDL measurement (mass/volume)on 03-27-2022 Cholesterol in VLDL [Mass/Vol] 34 mg/dL 5-40 [facility] Work Phone: Serum or plasma creatinine m easurement (mass/volume)on 03-27-2022 Creatinine [Mass/Vol] 1.43 mg/dL 0.70-1.30 [facility] Work Phone: Comment on above: The validity of the calculated GFR & GFRAA in patients over 70 years has not been determined. Clinical correlation is essential. Serum or plasma low density lipoprotein (LDL) cholesterol measurement (mass/volume)on 03-27-2022 Cholesterol in LDL [Mass/Vol] 68 mg/dL 0-130 [facility] [place] Work Phone: Serum or plasma urea nitroge n measurement (mass/volume)on 03-27-2022 Urea nitrogen [Mass/Vol] 19 mg/dL 7-18 [facility] [place] Work Phone: Thin prep Papanicolaou smear with manual screeningon 03-27-2022 Thin prep Papanicolaou smear with manual screening 22 U/L 15-37 [facility] [place] Work Phone: Thin prep Papanicolaou smear with manual screening 5 5-15 [facility] [place] Work Phone: Whole blood hemoglobin A1c/t otal hemoglobin ratio (mass fraction)on 03-27-2022 HbA1c (Bld) [Mass fraction] 7.0 % 3.8-5.6 [facility] [place] Work Phone: Comment on above: Normal < 5.7 % Predi abetic 5.7 - 6.4 % Diabetic >or= 6.5 % Please note range changes. US SCREENING AAAon 9 US SCREENING AAA [...] IMPRESSION: No evidence of abdominal aortic aneurysm Enterprise Cloud Architect: [email or web address] Transcribe Date/Time: Jul 03 2019 8:45A Dictated by : WAN WHEELER MD This examination was interpreted and the report reviewed and electronically signed by: WAN WHEELER MD on Jul 03 2019 8:46AM EST Normal [facility] Vital Signs Date Time Vital Sign Value Performing Clinician Ten lewis 03-22-2025 08:07-0400 Body mass index (BMI) [Ratio] 26.9 kg/m2 Kim LARA Work Phone: [facility] [place] 03-22-2025 08:07-0400 Body weight 85.27 kg Kim LARA Work Phone: [facility] [place] 03-22-2025 08:07-0400 Diastolic blood pressure 78 mm[Hg] Kim TUTTLEC Work Phone: [facility] [place] 03-22-2025 08:07-0400 Heart rate 63 /min Kim TUTTLEC Work Phone: [facility] [place] 03-22-2025 08:07-0400 Respiratory rate 18 /min Kim Ewing MELTER CLERK-C Work Phone: [facility] [place] 03-22-2025 08:07-0400 Systolic blood pressure 141 mm[Hg] Kim Ewing MELTER CLERK-C Work Phone: [facility] [place] 02-09-2025 15:27-0400 Body height 177.8 cm Kim Ewing MELTER CLERK-C Work Phone: [facility] [place] 02-09-2025 15:27-0400 Body mass index (BMI) [Ratio] 27.1 kg/m2 Kimagustina Ewing MELTER CLERK-C Work Phone: [phone] [place] [address] 02-09-2025 15:27-0400 Body temperature 97.3 [degF] Kimagustina Ewing MELTER CLERK-C Work Phone: [facility] [place] 02-09-2025 15:27-0400 Body weight 85.72 kg Kimagustina Ewing MELTER CLERK-C Work Phone: [facility] [place] 02-09-2025 15:27-0400 Diastolic blood pressure 60 mm[Hg] Kim Ewing MELTER CLERK-C Work Phone: [facility] [place] 02-09-2025 15:27-0400 Heart rate 58 /min Kim Ewing MELTER CLERK-C Work Phone: [facility] [place] 02-09-2025 15:27-0400 Respiratory rate 18 /min Kim Ewing MELTER CLERK-C Work Phone: [facility] [place] 02-09-2025 15:27-0400 SaO2% (BldA) [Mass fraction] 97 % Kim Ewing MELTER CLERK-C Work Phone: [facility] [place] 02-09-2025 15:27-0400 Systolic blood pressure 130 mm[Hg] Kim Ewing MELTER CLERK-C Work Phone: [facility] [place] 01-07-2025 14:23-0400 Body mass index (BMI) [Ratio] 27.2 kg/m2 Kimagustina CramerEwing MELTER CLERK-C Work Phone: [facility] [place] 01-07-2025 14:23-0400 Body weight 86.18 kg Kimagustina CramerEwing MELTER CLERK-C Work Phone: [facility] [place] 01-07-2025 14:23-0400 Diastolic blood pressure 75 mm[Hg] Kim Rocio MELTER CLERK-C Work Phone: [facility] [place] 01-07-2025 14:23-0400 Heart rate 49 /min Kimagustina CramerEwing MELTER CLERK-C Work Phone: [facility] [place] 01-07-2025 14:23-0400 Respiratory rate 18 /min Kim Ewing MELTER CLERK-C Work Phone: [facility] [place] 01-07-2025 14:23-0400 SaO2% (BldA) [Mass fraction] 96 % Kimagustina CramerEwing MELTER CLERK-C Work Phone: [facility] [place] 01-07-2025 14:23-0400 Systolic blood pressure 144 mm[Hg] Kimagustina CramerEwing MELTER CLERK-C Work Phone: [facility] [place] 02-12-2024 16:03-0400 Body height 177.8 cm [facility] 02-12-2024 16:03-0400 Body mass index (BMI) [Ratio] 27.9 kg/m2 [facility] [place] 02-12-2024 16:03-0400 Body temperature 97.3 [degF] [facility] 02-12-2024 16:03-0400 Body weight 88.45 kg [facility] 02-12-2024 16:03-0400 Diastolic blood pressure 70 mm[Hg] [facility] [place] 02-12-2024 16:03-0400 Heart rate 53 /min [facility] 02-12-2024 16:03-0400 Respiratory rate 18 /min [facility] 02-12-2024 16:03-0400 SaO2% (BldA) [Mass fraction] 95 % [facility] [place] 02-12-2024 16:03-0400 Systolic blood pressure 164 mm[Hg] [facility] [place] 09-11-2023 16:47-0500 Body height 177.8 cm [facility] 09-03-2023 11:15-0500 Body height 177.8 cm [facility] 09-03-2023 11:15-0500 Body mass index (BMI) [Ratio] 28.4 kg/m2 [facility] [place] 09-03-2023 11:15-0500 Body temperature 97.5 [degF] [facility] 09-03-2023 11:15-0500 Body weight 89.81 kg [facility] 09-03-2023 11:15-0500 Diastolic blood pressure 60 mm[Hg] [facility] [place] 09-03-2023 11:15-0500 Heart rate 55 /min [facility] 09-03-2023 11:15-0500 Respiratory rate 18 /min [facility] 09-03-2023 11:15-0500 SaO2% (BldA) [Mass fraction] 98 % [facility] [place] 09-03-2023 11:15-0500 Systolic blood pressure 158 mm[Hg] [facility] [place] 06-10-2023 20:10-0400 Body height 177.8 cm [facility] 06-10-2023 20:10-0400 Body mass index (BMI) [Ratio] 28.3 kg/m2 [facility] [place] 06-10-2023 20:10-0400 Body temperature 97.7 [degF] [facility] 06-10-2023 20:10-0400 Body weight 89.35 kg [facility] 06-10-2023 20:10-0400 Diastolic blood pressure 70 mm[Hg] [facility] [place] 06-10-2023 20:10-0400 Heart rate 57 /min [facility] 06-10-2023 20:10-0400 Respiratory rate 18 /min [facility] 06-10-2023 20:10-0400 SaO2% (BldA) [Mass fraction] 95 % [facility] [place] 06-10-2023 20:10-0400 Systolic blood pressure 150 mm[Hg] [facility] [place] 03-27-2022 17:17-0400 Body height 177.8 cm [facility] Work Phone: 03-27-2022 17:17-0400 Body mass index (BMI) [Ratio] 28.5 kg/m2 [facility] [place] Work Phone: 03-27-2022 17:17-0400 Body temperature 97 [degF] [facility] Work Phone: 03-27-2022 17:17-0400 Body weight 90.26 kg [facility] Work Phone: 03-27-2022 17:17-0400 Diastolic blood pressure 74 mm[Hg] [facility] [place] Work Phone: 03-27-2022 17:17-0400 Heart rate 53 /min [facility] Work Phone: 03-27-2022 17:17-0400 Respiratory rate 18 /min [facility] Work Phone: 03-27-2022 17:17-0400 SaO2% (BldA) [Mass fraction] 95 % [facility] [place] Work Phone: 03-27-2022 17:17-0400 Systolic blood pressure 190 mm[Hg] [facility] [place] Work Phone: Encounters Encounter Date Encounter Type Care Provider Facility Start: 03-22-2025 End: 03-22-[address] Giacomo Brambila MD -[facility] Work Phone: Start: 03-22-2025 End: 03-22-2025 ambulatory Kim Ewing MELTER CLERK-C Work Phone: [facility] Work Phone: Start: 02-09-2025 End: 02-09-2025 Patient encounter procedure Kim Ewing MELTER CLERK-C -[facility] Work Phone: Start: 02-09-2025 End: 02-09-2025 ambulatory Kim Ewing MELTER CLERK Facility:[facility] [place] Start: 01-07-2025 End: 01-07-[address] Giacomo Brambila [facility] Work Phone: Start: 01-07-2025 End: 01-07-2025 ambulatory Giacomo Kosta Facility:[facility] Start: 09-29-2024 End: 09-29-2024 ambulatory Kim Ewing MELTER CLERK Facility:[facility] [place] Start: 09-25-2024 ambulatory [place] T[place] Facility:[facility] Start: 09-23-2024 End: 09-23-2024 ambulatory Kim Ewing MELTER CLERK Facility:[facility] Start: 09-15-2024 ambulatory [place] Tana Facility:[facility] Start: 09-15-2024 End: 09-15-2024 ambulatory Kim Ewing MELTER CLERK Facility:[facility] [place] Start: 08-11-2024 ambulatory Giacomo Kosta Facility:[facility] Start: 08-11-2024 End: 08-11-2024 ambulatory Giacomo Kosta Facility:[facility] Start: 07-16-2024 End: 07-16-2024 ambulatory Kim Rocio MELTER CLERK Facility:[facility] Start: 06-10-2024 End: 06-10-2024 ambulatory Kim Ewing MELTER CLERK Facility:[facility] [place] Start: 02-12-2024 End: 02-12-2024 ambulatory [facility] [place] Work Phone: Start: 02-12-2024 End: 02-12-2024 Patient encounter procedure [facility] [place] Work Phone: Start: 09-11-2023 End: 09-11-2023 ambulatory [facility] [place] Work Phone: Start: 09-11-2023 End: 09-11-2023 Patient encounter procedure [facility] [place] Work Phone: Start: 09-03-2023 End: 09-03-2023 ambulatory [facility] [place] Work Phone: Start: 09-03-2023 End: 09-03-2023 Patient encounter procedure [facility] [place] Work Phone: Start: 06-10-2023 End: 06-10-2023 ambulatory [facility] [place] Work Phone: Start: 06-10-2023 End: 06-10-2023 Patient encounter procedure [facility] [place] Work Phone: Start: 03-27-2022 End: 03-27-2022 Patient encounter procedure [facility] [place] Procedures Date Procedure Procedure Detail Performing Clinician Start: 02-09-2025 Prostate specific an tigen measurement Kim Ewing MELTER CLERK-C Work Phone: Comment on above: This test was perfor med using the [facility] tPSA method. Measured values of a patient sample can vary depending on the testing procedure used. PSA values determined on patient samples by different testing procedures cannot be used interchangeably. If there is a change in PSA assays while monitoring therapy, sequential testing should be performed to confirm baseline values. Plan of Treatment Date Care Activity Detail Author US Kidney - bilateral and Urinary bladder [facility] US Renal artery [facility] Immunizations Immunization Date Immunization Notes Care Provider Fa bethty 01-12-2021 Covid (Pfizer) [facility] 12-22-2020 Covid (Pfizer) [facility] 07-27-2020 Fluzone Quad 2020-20 21 (PF) (flu vacc [id number] 6mos up(PF)) 60 mcg (15 mcg x [facility] [place] Work Phone: Payers Date Payer Category Payer Medicare [id number] 79a [id number] 2024 Self-pay [id number] 2024 Unknown [id number] Unknown [id number] 2.16.8 [id number] Unknown [id number] 2.16.8 [id number] Unknown [id number] 2.16.8 [id number] Unknown [id number] 2.16.8 [id number] Unknown [id number] 2.16.8 [id number] Unknown [id number] 2.16.8 [id number] Unknown [id number] 2.16.8 [id number] Unknown [id number] 2.16.8 [id number] Unknown [id number] 2.16.8 [id number] Unknown [id number] 2.16.8 [id number] Unknown [id number] 2.16.8 [id number] Unknown [id number] 2.16.8 [id number] Social History Date Type Detail Facility Start: 04-25-2021 End: 04-25-2021 Tobacco smoking status MOIS Unknown if ever smoked [facility] [place] Start: 1940 Sex Assigned At Male W [facility] Start: 06-09-2024 Tobacco smoking stat us MOIS Ex-smoker (finding) [facility] Progress note 03-22-2025 Note Date & Type Note Facility 03-22-2025 Progress note [facility] Progress note 03-22-2025 Note Date & Type Note Facility 03-22-2025 Progress note Note Date/Time March 22, 2025 9:47am [facility] [address] [place], [place] [address] OFFICE VISIT Date of Service: 03/22/25 MR#: [id number] Acct: [id number] Name: MARY MCLEAN Rep #: [id number] : 1940 Provider: Dr. José Miguel Brambila MD Age/Sex: 84/M Location: [facility] Status: Signed HPI HPI History of Present Illness Details: This gentleman with history of diabetes mellitus, hypertension, PVCs, chronic kidney disease and and moderate to moderately severe CAD noted on coronary CT angiography, is here for follow-up visit. Denies any chest pains. According tohim, his shortness of breath with exertion is mildly improved but not completelyresolved. Denies any orthopnea or PND. No ankle edema. Denies any palpitations. No lightheadedness or dizziness. No syncope or presyncope. Intake Vital Signs 01/07/25 14:23 03/22/25 08:07 Height 5 ft 10 in 5 ft 10 in Weight: 190 lb 188 lb BMI 27.2 26.9 BP 144/75 H 141/78 H Blood Pressure Location Lt brachial Lt brachial Position Sitting Sitting Respiration 18 18 Pulse 49 L 63 Pulse Source Monitor NIBP Pulse Oximetry (%) 96 Oxygen Delivery Method room air Intake Visit Reasons: 3 M FU Break Out Worker Required: No Accompanied by: Self Is patient in pain?: No Allergies lisinopril Adverse Reaction (Severe, Verified 03/22/25 09:32) renal insuff losartan Adverse Reaction (Severe, Verified 03/22/25 09:32) renal insuff Medications ?Medication ?Instructions ?Recorded ?Confirmed ?Type aspirin 81 mg tablet,delayed 81 mg PO DAILY 09/23/18 0 03/22/25 History release (Adult Low Dose Aspirin) ferrous sulfate 325 mg (65 mg 325 mg PO DAILY 09/23/18 03/22/25 History iron) tablet (Feosol) cetirizine 10 mg capsule (Zyrtec) 10 mg PO DAILY 06/2903/22/25 History levothyroxine 112 mcg tablet 112 mcg PO DAILY #90 tabs 06/30/24 03/22/25 Rx hydrochlorothiazide 25 mg tablet 25 mg PO QDAY #90 tab s 09/23/24 03/22/25 Rx isosorbide mononitrate 60 mg 60 mg PO QDAY #90 tabs 03/22/25 Rx tablet,extended release 24 hr atorvastatin 20 mg tablet (Lipitor) 20 mg PO DAILY #90 tabs 02/09/25 03/22/25 Rx carvedilol 3.125 mg tablet 3.125 mg PO BID #180 tabs 0 02/09/25 03/22/25 Rx diltiazem HCl 240 mg capsule,24 240 mg PO DAILY #90 ca ps 02/09/25 03/22/25 Rx hr,extended release metformin 500 mg tablet 500 mg PO BID #90 tabs 02/2503/22/25 Rx Ejection fraction %: 65 Have you fallen in the past year?: No PFSH Medical History Anemia Chronic renal insufficiency, stage III (moderate) Hepatitis A [place] (hard of hearing) Hyperlipidemia Hypertension 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 Sinus bradycardia Family History Father Alzheimer's disease Hypertension Diabetes Mother CAD (coronary artery disease) Brother CAD (coronary artery disease) Diabetes Social History Smoking Status: Former smoker ROS Const Const: Positive for fatigue and weakness; Negative for headache(s) or weight gain ENT ENT: Negative for headache(s), dizziness, Nosebleed/epistaxis or balance problems Cardio Chest Pain: No Palpitations: No Edema: None Muscle aches with walking: None Resp Respiratory: Positive for SOB with activity; Negative for SOB at rest or SOB orthopneaundefinedSOB lying down GI GI: Negative nausea, vomiting or heartburn Musc Musc: Negative for muscle aches/ myalgia, muscle weakness, joint pain or balanceproblems Neuro Neuro: Positive for weakness; Negative for dizziness, lightheadedness, near syncope, syncope or headache(s) Endo Endo: Positive for fatigue Cardiology Exam Const Appearance: comfortable and no acute distress Nutritional Appearance: well nourished Neck Neck: no JVD Carotids: Negative bruit Chest Auscultation: Bilateral: Clear to Auscultation Cardio Rate: regular rate Rhythm: regular rhythm Heart sounds: S1 normal and S2 normal Neuro General: patient alert, patient awake and patient oriented x3 Extremities Lower Extremity Edema: None: Bilateral Supplemental Info Supplemental Information Echocardiogram 08/11/2024: The left ventricular ejection fraction is 65 %. Mild tricuspid valve insufficiency. Right ventricular systolic pressure estimated to be 45 mmHg. Aortic sclerosis, no stenosis. Atherosclerotic aortic root Stress Test Report 08/11/2024: Procedure: Exercise tolerance test/imaging study Indications: Dyspnea Consent: Per the patient Procedure: The patient exercised on a Yonas protocol for 5 minutes and 29 seconds achievinga peak heart rate of 109 bpm (80% predicted maximal heart rate) with a peak blood pressure 160/80 mmHg and a peak MET capacity of 7.0 METs. The baseline ECG demonstrated sinus rhythm with nonspecific ST changes. The peak exercise ECG demonstrated no diagnostic ischemic changes. Occasional PVCs noted pretest, frequent PVCs during exercise. The functional capacity was considered average for age. There was no complaints of chest pain during exercise or in recovery. However the patient did feel short of breath.. The examination was discontinued secondary to dyspnea and leg weakness. The patient was injected with 10.2 mCi of technetium 99m Cardiolite and subsequently rest SPECT Cardiolite nuclear imaging was obtained in the horizontal long, vertical long, and short axis views. Post-exercise, the patientwas injected with 30.9 mCi of technetium 99m Cardiolite and subsequently stress SPECT Cardiolite nuclear imaging was obtained in the horizontal long, vertical long, and short axis views. A gated Cardiolite study at peak stress was obtained. Rest and stress SPECT Cardiolite nuclear imaging status post realignment, normalization, and attenuation correction, demonstrates the appearance of relative uniform tracer uptake and myocardial perfusion appearing within normal limits. There is end systolic thickening and brightening. The gated Cardiolitestudy demonstrates myocardial thickening and inward wall motion. The reported LVEF is 84%. Impression: 1. Suboptimal stress test with 80% of the maximal predicted heart rate achieved. Blunted blood pressure response to exercise. 2. Peak exercise ECG with no diagnostic ischemic changes 3. PVCs noted pretest. Frequent PVCs with exercise 4. Rest and stress SPECT Cardiolite nuclear imaging demonstrate relative uniform tracer uptake and myocardial perfusion appearing within normal limits. 5. The gated Cardiolite study reports an LVEF of 84%. 6. With blunted blood pressure response to exercise, recommend another modalitysuch as coronary CT angio for further evaluation. CCTA w/Cont Coronary Arteries 09/15/2024: Abnormal previous stress test Coronary Calcium Scoring: High-resolution Computed Tomographic imaging of the chest was performed on [09/15/2024], with particular attention paid to the coronary arteries. Intravenous contrast agent was administered per protocol and images reconstructed and displayed. LEFT MAIN CORONARY ARTERY: Arises from the left coronary cusp. There was mild calcification noted by peak into left anterior descending artery left circumflex artery LEFT ANTERIOR DESCENDING CORONARY ARTERY: This is a medium size vessel with significant proximal and mid calcification and narrowing noted of the first diagonal vessel. There is at least moderate narrowing of the mid left anterior descending artery. The vessel continues towards the apex of the ventricle. LEFT CIRCUMFLEX CORONARY ARTERY: This was a large vessel with moderate calcification with moderate stenosis noted in the midsegment. RIGHT CORONARY ARTERY: Dominant right coronary artery with proximal and mid segment calcification which is moderate the may be a distal posterior descending artery occlusion noted. There is some motion artifact present. CORONARY CALCIUM SCORE: Not performed Moderate to moderately severe atherosclerotic calcification noted involving the left anterior descending artery, left circumflex artery, and right coronary artery. Obstructive disease cannot be excluded in these 3 vessels. However the extent of the calcification precludes detailed assessment of the segments. Assessment and Plan Assessment and Plan (1) SOB (shortness of breath): Status: Chronic Plan: Normal LV systolic function. Moderately severe CAD noted on coronary CT angio. Shortness of breath could be anginal equivalent. [place] class II. Opts for medical treatment at present. Continue beta-blockers. Increase carvedilol to 6.25 mg twice daily. Continue calcium channel karina. Nitrates. (2) Coronary artery disease: Status: Chronic Plan: Calcific coronary artery disease noted on coronary CT angio. Continue aspirin. Beta-blockers. Calcium channel blockers. Statins. (3) Hypertension: Status: Chronic Qualifiers: Hypertension type: essential hypertension Qualified Code(s): I10 - Essential (primary) hypertension Plan: Increase carvedilol to 6.25 mg twice daily. Continue diltiazem and hydrochlorothiazide. Continue nitrates. (4) PVCs (premature ventricular contractions): Status: Chronic Plan: History of PVCs. On carvedilol and diltiazem. (5) Dyslipidemia: Status: Chronic Plan: LDL above goal. Increase atorvastatin to 40 mg daily. 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 (7) Chronic renal insufficiency: Status: Chronic Qualifiers: Chronic kidney disease stage: stage 3 (moderate) Chronic kidney disease stage 3 subtype: stage 3b (GFR 30-44) Qualified Code(s): N18.32 - Chronic kidney disease, stage 3b Plan: As per PCP. Plan Details Follow Up: 6 Months Coding Level of Care Code Off vis,est,level 4 Diagnoses SOB (shortness of breath) R06.02 Coronary artery disease I25.10 Essential hypertension I10 Hypertension type: essential hypertension PVCs (premature ventricular contractions) I49.3 Dyslipidemia E78.5 Type 2 diabetes mellitus with diabetic peripheral angiopathy without gangrene, without long-term current use of insulin E11.51 Diabetes mellitus type: type 2 Diabetes mellitus transport technician insulin use: without transport technician use Diabetes mellitus complication status: with circulatory complication Diabetes mellitus complication detail: with peripheral angiopathy without gangrene Chronic renal impairment, stage 3b N18.32 Chronic kidney disease stage: stage 3 (moderate) Chronic kidney disease stage 3 subtype: stage 3b (GFR 30-44) Coding Level of Care Code Off vis,est,level 4 Diagnoses SOB (shortness of breath) R06.02 Coronary artery disease I25.10 Essential hypertension I10 Hypertension type: essential hypertension PVCs (premature ventricular contractions) I49.3 Dyslipidemia E78.5 Type 2 diabetes mellitus with diabetic peripheral angiopathy without gangrene, without long-term current use of insulin E11.51 Diabetes mellitus type: type 2 Diabetes mellitus prison insulin use: without transport technician use Diabetes mellitus complication status: with circulatory complication Diabetes mellitus complication detail: with peripheral angiopathy without gangrene Chronic renal impairment, stage 3b N18.32 Chronic kidney disease stage: stage 3 (moderate) Chronic kidney disease stage 3 subtype: stage 3b (GFR 30-44) Clinical Quality Measures Falls Risk Screening/Assistive Devices Have you fallen in the past year?: No Cardiac Ejection fraction %: 65 03/22/25 0947 <Electronically signed by Giacomo Brambila MD> Date _ Giacomo Brambila MD Cosigner Signature: Date (if applicable) CC: MARCO Ewing ~ [facility] Work Phone: Evaluation note 01-07-2025 Note Date & Type Note Facility 01-07-2025 Evaluation note Diagnosis Onset Date Resolution Chronic renal insufficiency chronic January 07, 2025 2:15pm Coronary artery disease chronic M 2024 2:15pm Diabetes chronic January 07 2:15pm Dyslipidemia chronic January 07, 2025 2:15pm Hypertension chronic January 07, 2025 2:15pm PVCs (premature ventricular contractions) chronic January 07, 2025 2:15pm SOB (shortness of breath) chronic January 07, 2025 2:15pm Hypothyroidism acute January 3:08pm Chronic renal insufficiency chronic February 09, 2025 3:08pm Dyslipidemia chronic February 09, 2025 3:08pm Chronic renal insufficiency chronic March 22, 2025 9:23am Coronary artery disease chronic 2024 9:23am Diabetes chronic March 22, 2025 9:23am Dyslipidemia chronic March 22 9:23am Hypertension chronic March 22 9:23am PVCs (premature ventricular contractions) chronic March 22, 2025 9:23am SOB (shortness of breath) chronic March 22, 2025 9:23am [facility] Work Phone: Evaluation note Note Date & Type Note Facility Evaluation note Diagnosis Onset Date Hyperlipidemia acute Hypothyroidism acute Hypertension [facility] Work Phone: Evaluation note Note Date & Type Note Facility Evaluation note Diagnosis Onset Date Frequency of urination acute Hyperlipidemia acute Hypothyroidism acute Chronic renal insufficiency, stage III (moderate) chronic Hypertension [facility] Work Phone: Evaluation note Note Date & Type Note Facility Evaluation note Diagnosis Onset Date Frequency of urination acute Hyperlipidemia acute Hypothyroidism acute Chronic renal insufficiency, stage III (moderate) chronic Hypertension chronic Elevated PSA acute Hyperglycemia acute Chronic renal insufficiency, stage IV (severe) [facility] Work Phone: Evaluation note Note Date & Type Note Facility Evaluation note Diagnosis Onset Date Frequency of urination acute Hyperlipidemia acute Hypothyroidism acute Chronic renal insufficiency, stage III (moderate) chronic Hypertension chronic Elevated PSA acute Hyperglycemia acute Chronic renal insufficiency, stage IV (severe) chronic Hypothyroidism acute [facility] Work Phone: Evaluation note Note Date & Type Note Facility Evaluation note Diagnosis Onset Date Hyperlipidemia acute Hypothyroidism acute Chronic renal insufficiency, stage IV (severe) chronic Hypertension chronic [facility] Work Phone: Reason for referral (narrative) Note Date & Type Note Facility Reason for referral (narrative) No reason for referral information available [facility] Work Phone: Summary Purpose Family History No Family History Records Found Relationship Condition Age at Onset Recorded Date/[place] father Alzheimer's disease Unknown Hypertension Unknown Diabetes mellitus Unknown mother Coronary artery disease Unknown brother Coronary artery disease Unknown Advance Directives No Advanced Directives Records FoundNo Advanced Directives Records Found Chief Complaint and Reason for Visit Chief Complaint F/up new medication Reason for Visit Hyperlipidemia Hypothyroidism Hypertension Chief Complaint medication refills Reason for Visit Frequency of urinati on Hyperlipidemia Hypothyroidism Chronic renal insufficiency, stage III (moderate) Hypertension Chief Complaint medication refills medication refills/Labs Reason for Visit Frequency of urinati on Hyperlipidemia Hypothyroidism Chronic renal insufficiency, stage III (moderate) Hypertension Elevated PSA Hyperglycemia Chronic renal insufficiency, stage IV (severe) Chief Complaint medication refills medication refills/Labs lab(TSH) Reason for Visit Frequency of urinati on Hyperlipidemia Hypothyroidism Chronic renal insufficiency, stage III (moderate) Hypertension Elevated PSA Hyperglycemia Chronic renal insufficiency, stage IV (severe) Hypothyroidism Chief Complaint medication refills/L abs Reason for Visit Hyperlipidemia Hypothyroidism Chronic renal insufficiency, stage IV (severe) Hypertension Chief Complaint Admit Date 3 M FU January 07, 2025 2:1 5pm medication refills February 09, 2025 3:0 8pm 3 M FU March 22, 2025 9:23a m Reason for Visit Admit Date Chronic renal insufficiency January 07, 2025 2:15pm Coronary artery disease January 07, 2025 2:15pm Diabetes January 07, 2025 2:1 5pm Dyslipidemia January 07, 2025 2:1 5pm Hypertension January 07, 2025 2:1 5pm PVCs (premature ventricular contractions ) January 07, 2025 2:15pm SOB (shortness of breath) January 07 2:15pm Hypothyroidism February 09, 2025 3:0 8pm Chronic renal insufficiency February 09, 2025 3:08pm Dyslipidemia February 09, 2025 3:0 8pm Chronic renal insufficiency March 22 9:23am Coronary artery disease March 22, 2025 9 :23am Diabetes March 22, 2025 9:23a m Dyslipidemia March 22, 2025 9:23a m Hypertension March 22, 2025 9:23a m PVCs (premature ventricular contractions ) March 22, 2025 9:23am SOB (shortness of breath) March 22, 2025 9:23am Additional Source Comments (unrecognized sect ion and content) No Status Records FoundNo Status Records Found INFORMATION SOURCE (unrecogn ized section and content) DATE CREATED AUTHOR 07/03/2019 [place] [facility] DATE CREATED AUTHOR AUTHOR'S ORGANIZ ATION 03/22/2025 [facility] Goals (unrecognized section and content) Goals may be documented in a n alternate sectionGoals may be documented in an alternate sectionGoals may be documented in an alternate sectionGoals may be documented in an alternate sectionGoals may be documented in an alternate sectionGoals may be documented in an alternate section Care Teams (unrecognized sec tion and content) Team Status: Active Member Role Status Dates Kim Ewing NP, MELTER CLERK-C Family Provider Active Kim Ewing NP MELTER CLERK-C Primary Care Provider Active Team Status: Inactive Member Role Status Dates Kim Ewing NP, NP-C Primary Care Pr ovider, Attending Provider, Referring Provider Active Team Status: Inactive Member Role Status Dates Kim Ewing NP, NP-C Primary Care Provider, Attend ing Provider Active Team Status: Inactive Member Role Status Dates Kim Ewing NP, NP-C Primary Care Provider Active Start: January 07, 2025 End: January 07, 2025 Kim Ewing NP, NP-C Referring Provider Active Start: January 07, 2025 End: January 07, 2025 Dr. Giacomo Brambila MD Attending Provider Active Start: January 07, 2025 End: January 07, 2025 Team Status: Inactive Member Role Status Dates Kim Ewing NP, NP-C Primary Care Provider Active Start: February 09, 2025 End: February 09, 2025 Kim Ewing NP, NP-C Attending Provider Active Start: February 09, 2025 End: February 09, 2025 Kim Ewing NP MELTER CLERK-C Referring Provider Active Start: February 09, 2025 End: February 09, 2025 Team Status: Inactive Member Role Status Dates Kim Ewing NP, JEANA-C Primary Care Provider Active Start: March 22, 2025 End: March 22, 2025 Kim Ewing NP, NP-C Referring Provider Active Start: March 22, 2025 End: March 22, 2025 Dr. Giacomo Brambila MD Attending Provider Active Start: March 22, 2025 End: March 22, 2025 FOR RECORDS PERTAINING TO PATIENTS WHO ARE [...] BE BASED ON THE PRIMARY CLINICAL RECORDS. [employer] [facility]. provides no warranty or guarantee of the accuracy or completeness of information in this document.
[2025-06-11 23:45] LABS: AST(SGOT) 19 U/L (<=37); Alanine Aminotransfer ALT/SGPT 16 U/L (<=46); Albumin, Serum 3.9 g/dL (3.4-4.8); Alkaline Phosphatase 99 U/L (40-129); Anion Gap 15 (5-15); BUN 19 mg/dL (4-19); BUN/Creat Ratio 13.1 RATIO (10-20); Calcium,Total 9.9 mg/dL (7.6-11.0); Carbon Dioxide 26.2 mmol/L (21.0-32.0); Chloride 98 mmol/L (98-108); Globulin 3.7 g/dL (2.2-4.2); Glucose 169 mg/dL (70-99); PSA,Total- Diagnostic 3.85 ng/mL (0.00-4.00); Potassium 5.1 mmol/L (3.3-5.1)
== END | disposition home or self-care (01) ==
PROVIDERS: PCP Nurse Practitioner; Visit Provider Nurse Practitioner
DX: R97.20 Elevated prostate specific antigen [PSA] (principal); E11.65 Type 2 diabetes mellitus with hyperglycemia; E11.22 Type 2 diabetes mellitus with diabetic chronic kidney disease; N18.30 Chronic kidney disease, stage 3 unspecified; I12.9 Hypertensive chronic kidney disease with stage 1 through stage 4 chronic kidney disease, or unspecified chronic kidney disease
CPT/HCPCS: 80053; 83036; 84153